=== PATIENT | male | born 1975 | race Caucasian/White ===

== ENCOUNTER 2024-02-18 15:51 | Inpatient (IN) | payer OTHER, SELFPAY ==
[2024-02-18] VITALS (7 sets, daily range): BP systolic 128–168; BP diastolic 75–107; PULSE 98–126; TEMP 36.6–36.9; O2SAT 94–96; BMI 37.7; BMI 37.8
--- NOTE | 2024-02-18 16:12 | ED.SKABFB1 ---
HPI - Skin/Abscess/Foreign Bdy General Chief complaint: Skin/Abscess/Foreign Body Stated complaint: LUMP Time Seen by Provider: 02/18/24 16:09 Source: patient Mode of arrival: ambulance Limitations: no limitations History of Present Illness HPI narrative: Patient is a 48-year-old male with a history of diabetes who presents to the emergency department for a 1 week history of abscess to the left axilla. He was seen by his doctor 4 days ago and started on doxycycline. He states he has been compliant with this medication but the area to the left axilla continues to grow. He has not had any fevers but states the pain to the left axilla does make him sick to his stomach. The area has been open and draining for several days. Related Data Home Medications ?Medication ?Instructions ?Recorded ?Confirmed atorvastatin 40 mg tablet 40 mg PO DAILY 02/18/24 bupropion HCl 150 mg 24 hr tablet, 150 mg PO DAILY 02/18/24 02/18/24 extended release doxycycline monohydrate 100 mg 100 mg PO Q12H 02/18/24 02/18/24 capsule glipizide 5 mg tablet, extended 5 mg PO DAILY 02/18/24 02/18/24 release 24 hr lisinopril 10 mg tablet 10 mg PO DAILY 02/18/24 02/18/24 metformin 500 mg tablet 500 mg PO BID 02/18/24 02/18/24 omeprazole 40 mg capsule,delayed 40 mg PO DAILY 02/18/24 02/18/24 release venlafaxine 75 mg capsule,extended 150 mg PO DAILY 02/18/24 02/18/24 release 24 hr Allergies Allergy/AdvReac Type Severity Reaction Status Date / Time Unable to Assess Allergy Verified 02/18/24 16:00 Review of Systems ROS Constitutional Denies: fever or chills Ears, nose, mouth, and throat Denies: throat pain or nasal congestion Respiratory Denies: shortness of breath Gastrointestinal Reports: nausea and vomiting; Denies: abdominal pain Integumentary/Breast Reports: redness, skin pain, skin tenderness and skin swelling; Denies: rash Hematologic/Lymphatic Denies: easy bruising or easy bleeding [facility] Medical History (Updated 02/18/24 @ 18:31 by RON Tovar) Esophageal abnormality ?K22.9 - Disease of esophagus, unspecified (ICD-10) GERD (gastroesophageal reflux disease) ?K21.9 - Gastro-esophageal reflux disease without esophagitis (ICD-10) Hypertension ?I10 - Essential (primary) hypertension (ICD-10) Depression ?F32.A - Depression, unspecified (ICD-10) Diabetes ?E11.9 - Type 2 diabetes mellitus without complications (ICD-10) Exam Narrative Exam Narrative: Gen.: Awake, alert, in no distress Head: Normocephalic, atraumatic ENT: Moist mucous membranes Respiratory: No respiratory distress Extremities: Large abscess to the left axilla that is open, draining and swollen diffusely. Firm swollen area surrounding the abscess to the left axilla. No red streaking. No palpable crepitance under the skin Psych: Normal mood and affect Neuro: No focal neuro deficit Skin: Warm, dry, intact Constitutional Vital Signs, click to edit/add: Last Vital Signs Temp 98 F 02/18/24 15:56 Pulse 108 H 02/18/24 17:37 Resp 18 02/18/24 17:37 BP 128/75 02/18/24 17:37 Pulse Ox 95 02/18/24 17:37 O2 Del Method Room Air 02/18/24 15:56 Course Vital Signs Vital signs: Vital Signs Temperature 98 F 02/18/24 15:56 Pulse Rate 126 H 02/18/24 15:56 Respiratory Rate 16 02/18/24 15:56 Blood Pressure 168/107 H 02/18/24 15:56 Pulse Oximetry 96 02/18/24 15:56 Oxygen Delivery Method Room Air 02/18/24 15:56 Temperature 98 F 02/18/24 15:56 Pulse Rate 108 H 02/18/24 17:37 Respiratory Rate 18 02/18/24 17:37 Blood Pressure 128/75 02/18/24 17:37 Pulse Oximetry 95 02/18/24 17:37 Oxygen Delivery Method Room Air 02/18/24 15:56 MDM - Skin/Abscess/Foreign Bdy MDM Narrative Medical decision making narrative: Patient treated with IV Zosyn and vancomycin for worsening abscess to the left axilla. He declined pain medication. Heart rate has improved although he remains mildly tachycardic. Sepsis labs were ordered, patient has white blood cell count 15.5. Lactic acid is normal although blood sugar is elevated at 385. CT of the chest performed to evaluate the area to the left axilla showing a 7.5 cm area of phlegmon, no defined abscess. Drainage from the left axilla was cultured. Discussed failure of outpatient treatment with the patient and his , he is reluctant but willing to stay for IV antibiotics and further treatment. Stable at time of admission. SUPERVISED APC VISIT, PHYSICIAN ATTESTATION: Based on the medical record the care appears appropriate. ? Medical Records Attestation: I reviewed the patient's medical records. Lab Data Attestation: I reviewed the patient's lab results. Labs: Lab Results 02/18/24 Range/Units 16:21 WBC 15.1 H (4.0-11.0) 10^3/uL RBC 5.76 (4.70-6.10) 10^6/uL Hgb 14.5 (14.0-18.0) g/dL Hct 45.3 (42.0-54.0) % MCV 78.6 L (80.0-94.0) fL MCH 25.2 L (25.9-34.0) pg MCHC 32.0 (29.9-35.2) g/dL RDW 12.9 (11.0-15.0) % Plt Count 346 (150-450) 10^3/uL MPV 9.2 L (9.5-13.5) fL Neut % (Auto) 77.2 H (43.0-75.0) % Lymph % (Auto) 12.7 L (20.5-60.0) % Falls % (Auto) 6.9 (1.7-12.0) % Eos % (Auto) 1.3 (0.9-7.0) % Baso % (Auto) 0.6 (0.2-2.0) % Neut # (Auto) 11.6 H (1.4-6.5) 10^3/uL Lymph # (Auto) 1.9 (1.2-3.8) 10^3/uL Falls # (Auto) 1.0 H (0.3-0.8) 10^3/uL Eos # (Auto) 0.2 (0.0-0.7) 10^3/uL Baso # (Auto) 0.1 (0.0-0.1) 10^3/uL Abs Immat Gran (auto) 0.19 H (0.00-0.03) 10^3/uL Imm/Tot Granulo (auto) 1.3 H (0.0-0.5) % ESR 111 H (<=15) mm/hr VBG pH 7.518 H (7.330-7.430) VBG pCO2 30.9 L (40.0-52.0) mmHg Sodium 128 L (136-145) mmol/L Potassium 4.0 (3.5-5.1) mmol/L Chloride 94 L (98-107) mmol/L Carbon Dioxide 27.6 (21.0-32.0) mmol/L Anion Gap 10.4 BUN 18.0 (7.0-18.0) mg/dL Creatinine 1.04 (0.70-1.30) mg/dL Est GFR ( Amer) >60 (>=60) Est GFR (Non-Af Amer) >60 (>=60) BUN/Creatinine Ratio 17.3 Glucose 385 H (74-106) mg/dL Lactate 1.7 (0.4-2.0) mmol/L Calcium 9.3 (8.5-10.1) mg/dL Total Bilirubin 0.4 (0.2-1.0) mg/dL AST 7 L (15-37) U/L ALT 16 (16-63) U/L Alkaline Phosphatase 163 H (46-116) U/L C-Reactive Protein 14.33 H (<=0.50) mg/dL Total Protein 7.3 (6.4-8.2) g/dL Albumin 2.7 L (3.4-5.0) g/dL Globulin 4.6 g/dL Albumin/Globulin Ratio 0.[address] scan - chest: Attestation: I have reviewed the pertinent imaging results. Radiologist's impression: ITS Impressions Chest CT 02/18/24 16:35 IMPRESSION: 1. Mildly hyperdense ill-defined subcutaneous 7.4 cm collection in the left axilla with surrounding inflammation which is suggestive of a phlegmon. No peripheral enhancement to suggest an abscess. Consider ultrasound correlation. 2. No left axillary lymphadenopathy. 3. No pulmonary airspace disease. Electronically authenticated by: RYAN STRONG Date: 02/18/2024 18:18 Discharge Plan Discharge Chief Complaint: Skin/Abscess/Foreign Body Patient Disposition: Admitted As Inpatient Time of Disposition Decision: 18:31 Prescriptions / Home Meds: No Action atorvastatin 40 mg tablet 40 mg PO DAILY bupropion HCl 150 mg tablet extended release 24 hr 150 mg PO DAILY doxycycline monohydrate 100 mg capsule 100 mg PO Q12H Patient Comments: 02/14/24-03/15/24 glipizide 5 mg tablet extended release 24hr 5 mg PO DAILY lisinopril 10 mg tablet 10 mg PO DAILY omeprazole 40 mg capsule,delayed release(DR/EC) 40 mg PO DAILY venlafaxine 75 mg capsule,extended release 24hr 150 mg PO DAILY metformin 500 mg tablet 500 mg PO BID Print Language: Japanese Referrals: CAMACHO SWARTZ [Primary Care Provider] - 1 week
[2024-02-18 16:30] LABS: Basophils Absolute Auto 0.1 10^3/uL (0.0-0.1); Basophils Percent Auto 0.6 % (0.2-2.0); Eosinophils Absolute Auto 0.2 10^3/uL (0.0-0.7); Eosinophils Percent Auto 1.3 % (0.9-7.0); Hematocrit 45.3 % (42.0-54.0); Hemoglobin 14.5 g/dL (14.0-18.0); Immature Granulocytes Abs Auto 0.19 10^3/uL (0.00-0.03); Immature Granulocytes Pct Auto 1.3 % (0.0-0.5); Lymphocytes Absolute Auto 1.9 10^3/uL (1.2-3.8); Lymphocytes Percent Auto 12.7 % (20.5-60.0); Mean Corpuscular Hemoglobin 25.2 pg (25.9-34.0); Mean Corpuscular Volume 78.6 fL (80.0-94.0); Mean Platelet Volume 9.2 fL (9.5-13.5); Monocytes Percent Auto 6.9 % (1.7-12.0); Neutrophils Absolute Auto 11.6 10^3/uL (1.4-6.5); Neutrophils Percent Auto 77.2 % (43.0-75.0); Platelet Count 346 10^3/uL (150-450); Red Blood Count 5.76 10^6/uL (4.70-6.10); Red Cell Distribution Width 12.9 % (11.0-15.0); White Blood Count 15.1 10^3/uL (4.0-11.0)
[2024-02-18 16:31] LABS: PCO2 VBG 30.9 mmHg (40.0-52.0); pH VBG 7.518 (7.330-7.430)
--- NOTE | 2024-02-18 16:35 | CT_ITS ---
The [address] [address] Patient Name: DANIEL LITTLE MRN: [id number] date: 1975 Sex: M Assigned Patient Location: ER Current Patient Location: ED.MAIN Accession/Order Number: [id number] Exam Date: 02/18/2024 16:30 Report Date: 02/18/2024 18:18 At the request of: YON REARDON Procedure: CT chest w con CT CHEST WITH CONTRAST HISTORY: Left axilla abscess COMPARISON: There are no prior studies available for comparison. TECHNIQUE: Multidetector CT images through the chest were obtained after administration of nonionic intravenous contrast. FINDINGS: LUNGS: The lungs are clear. There are no pleural effusions. No pneumothorax. AXILLA: There is a mildly hyperdense low density irregular collection in the left axilla measuring approximately 7.4 x 4.0 cm on axial plane. There is no peripheral enhancement. There is surrounding inflammation. AORTA: No aortic aneurysm. No aortic dissection. LYMPH NODES: No enlarged axillary or mediastinal lymph nodes by CT criteria. HEART: Normal size. No pericardial effusion. UPPER ABDOMEN: The visualized parenchymal organs of the upper abdomen are normal. MUSCULOSKELETAL: Axial skeleton shows no acute abnormality. CT/CT chest w con IMPRESSION: 1. Mildly hyperdense ill-defined subcutaneous 7.4 cm collection in the left axilla with surrounding inflammation which is suggestive of a phlegmon. No peripheral enhancement to suggest an abscess. Consider ultrasound correlation. 2. No left axillary lymphadenopathy. 3. No pulmonary airspace disease. Electronically authenticated by: RYAN STRONG Date: 02/18/2024 18:18
[2024-02-18] MEDS: 0.9 % SODIUM CHLORIDE 1,000 ML 999 ML IV (16:41)
[2024-02-18] MEDS: PIPERACILLIN SODIUM/TAZOBACTAM 4.5 GM in 0.9 % SODIUM CHLORIDE 50 ML IV (16:42)
[2024-02-18] MEDS: ONDANSETRON PF 4 MG/2 ML VIAL IV (16:43)
[2024-02-18 16:46] LABS: Erythrocyte Sedimentation Rate 111 mm/hr (<=15)
[2024-02-18 16:49] LABS: Alanine Aminotransferase 16 U/L (16-63); Albumin Globulin Ratio 0.6; Albumin Level 2.7 g/dL (3.4-5.0); Alkaline Phosphatase 163 U/L (46-116); Anion Gap 10.4; Aspartate Amino Transferase 7 U/L (15-37); BUN Creatinine Ratio 17.3; Bilirubin Total 0.4 mg/dL (0.2-1.0); C Reactive Protein 14.33 mg/dL (<=0.50); Calcium 9.3 mg/dL (8.5-10.1); Carbon Dioxide 27.6 mmol/L (21.0-32.0); Chloride 94 mmol/L (98-107); Estimated GFR (African America >60 (>=60); Estimated GFR (Non-African Ame >60 (>=60); Globulin 4.6 g/dL; Glucose 385 mg/dL (74-106); Sodium 128 mmol/L (136-145); Total Protein 7.3 g/dL (6.4-8.2)
[2024-02-18 16:52] LABS: Lactate/Lactic Acid 1.7 mmol/L (0.4-2.0)
[2024-02-18] MEDS: VANCOMYCIN HCL 2,000 MG in 0.9 % SODIUM CHLORIDE 500 ML 250 MG IV ×2 (17:02→22:03)
[2024-02-18 21:52] LABS: Glucometer 375 mg/dL (74-106)
[2024-02-18] MEDS: 0.9 % SODIUM CHLORIDE 1,000 ML 125 ML IV (21:52)
[2024-02-18] MEDS: INSULIN ASPART 300 UNIT/3 ML PEN SUBQ (21:52)
--- NOTE | 2024-02-18 22:41 | PC.NURSE ---
pt states he is allergic to a pain medication that was a pill> But he does not remember what the medication was called.
[2024-02-19] VITALS (21 sets, daily range): BP systolic 123–164; BP diastolic 79–93; PULSE 85–99; TEMP 36.4–37.2; O2SAT 94–97
--- NOTE | 2024-02-19 | CONS_ITS ---
CONSULTATION ? CONSULTATION DATE: ??02/19/2024 ? REASON FOR CONSULTATION:? Left axillary inflammation, abscess. ? HISTORY OF PRESENT ILLNESS:? The patient is a 48-year-old male with a history of type 2 diabetes, hypertension, hyperlipidemia, who reports a one week history of swelling and pain in the left axilla.? He was seen by Dr. Phan, his family doctor, four days ago and placed on doxycycline.? Several days ago, he started developing some minimal drainage, but has had increased swelling and pain.? No fevers.? He presented to the emergency room yesterday afternoon for evaluation, had elevated white blood cell count, as well as a CT scan that revealed just phlegmonous changes in the left axilla.? He does have a history of previous infections in the axilla, as well as in the leg.? His sugars have been elevated during this process.? He denies any history of cystic lesion or pimple in this area prior to it beginning, just noticed it once it was more swollen and sore.? ? ALLERGIES:? Patient reports no known drug allergies.? ? HOME MEDICATIONS:? Include atorvastatin, bupropion, doxycycline, glipizide, lisinopril, metformin, omeprazole and venlafaxine. ? PAST SURGICAL HISTORY:? Significant for ACL repair, tonsillectomy. ? SOCIAL HISTORY:? Patient is , reports rare alcohol use, no tobacco use, no illicit drug use.? ? FAMILY HISTORY:? Noncontributory. ? REVIEW OF SYSTEMS:? Ten system review of systems is negative for recent weight loss or weight gain.? Denies increased fatigue or light-headedness.? Has had no earache or tinnitus.? No sinus congestion.? No sore throat or hoarseness.? No chest pain, palpitations or syncope.? No chronic cough, shortness of breath or hemoptysis.? No abdominal pain, nausea or vomiting.? No diarrhea, constipation or decreased caliber of the stool.? No melena, hematochezia or bright red blood per rectum.? No dysuria, frequency, urgency or hematuria.? No headaches, seizures or tremors.? No easy bruising or bleeding.? No heat or cold intolerance.? No polydipsia, polyphagia or polyuria. ? PHYSICAL EXAM:? VITAL SIGNS:? Patient is afebrile.? Blood pressure is 164/90.? Pulse is 92 and regular.? Respiratory rate is 18. Temperature is 99 degrees Fahrenheit. ?O2 saturation is 96% on room air.? GENERAL:? In general, he is an obese male, in no acute distress.? HEENT:? Normocephalic, atraumatic.? Sclerae anicteric.? Conjunctiva are not injected.? Oral mucosa is moist without lesions.? NECK:? His neck is supple.? No adenopathy, thyromegaly or JVD. LUNGS:? Clear bilaterally.? CARDIAC EXAM:? Regular rhythm and rate. ABDOMEN:? Obese, soft, non-tender, non-distended.? LEFT AXILLA:? Reveals approximately an 8 cm area of induration with superficial erythema.? There are some superficial pustules in this area with purulent drainage.? No significant fluctuance.? There is firmness and tenderness.? No crepitus.? SKIN:? Otherwise warm and dry without lesions, rashes or ulcers.? NEURO EXAM:? Non-focal.? Non-lateralizing.? ? LABORATORY DATA:? White blood cell count is 13,900.? H&H is normal.? Electrolytes, BUN and creatinine unremarkable.? Glucose is elevated.? ? IMAGING:? CT scan images were personally reviewed. ? ASSESSMENT:? A 48-year-old male with a one week history of left axillary infection.? CT appears to be just phlegmonous changes, but on exam it appears to be consistent with abscess that is partially draining. ? PLAN:? Indications, risks, benefits, alternatives of proceeding with incision and draining of the abscess under local anesthesia at the bedside were explained extensively to the patient, including risks of bleeding, infection, scarring, pain, recurrence and need for further surgery.? All his questions were answered.? Informed consent was obtained. ? PROCEDURE:? The area was prepped and draped at the bedside.? It was anesthetized with 1% lidocaine.? The small draining areas were then incised, approximately 2 cm incision, with a large amount of thick purulent drainage noted.? The abscess cavity, which probably extended about 5 cm, was packed with ?? NuGauze covered with 4 x 4?s and an ABD pad and tape.? Patient tolerated procedure well, will begin b.i.d. dressing changes.? Continue antibiotics.? Await culture results which had been sent yesterday.? As long as he continues to improve, he may be able to be discharged to home tomorrow, if there are some preliminary cultures results back.? He will require at least daily packing at home on discharge.? ? CC:? Dr. Shoemaker?? MTDBucky
[2024-02-19 06:51] LABS: Basophils Absolute Auto 0.1 10^3/uL (0.0-0.1); Basophils Percent Auto 0.5 % (0.2-2.0); Eosinophils Absolute Auto 0.2 10^3/uL (0.0-0.7); Eosinophils Percent Auto 1.5 % (0.9-7.0); Hematocrit 42.6 % (42.0-54.0); Hemoglobin 13.5 g/dL (14.0-18.0); Immature Granulocytes Abs Auto 0.24 10^3/uL (0.00-0.03); Immature Granulocytes Pct Auto 1.7 % (0.0-0.5); Lymphocytes Absolute Auto 2.3 10^3/uL (1.2-3.8); Lymphocytes Percent Auto 16.5 % (20.5-60.0); Mean Corpuscular HGB Conc 31.7 g/dL (29.9-35.2); Mean Corpuscular Hemoglobin 25.3 pg (25.9-34.0); Mean Corpuscular Volume 79.9 fL (80.0-94.0); Mean Platelet Volume 9.1 fL (9.5-13.5); Monocytes Absolute Auto 1.1 10^3/uL (0.3-0.8); Monocytes Percent Auto 8.1 % (1.7-12.0); Neutrophils Absolute Auto 9.9 10^3/uL (1.4-6.5); Neutrophils Percent Auto 71.7 % (43.0-75.0); Platelet Count 315 10^3/uL (150-450); Red Blood Count 5.33 10^6/uL (4.70-6.10); White Blood Count 13.9 10^3/uL (4.0-11.0)
[2024-02-19 07:04] LABS: Alanine Aminotransferase 16 U/L (16-63); Albumin Globulin Ratio 0.6; Albumin Level 2.5 g/dL (3.4-5.0); Alkaline Phosphatase 141 U/L (46-116); Anion Gap 10.4; Aspartate Amino Transferase 6 U/L (15-37); BUN Creatinine Ratio 15.7; Bilirubin Total 0.5 mg/dL (0.2-1.0); Calcium 9.3 mg/dL (8.5-10.1); Chloride 99 mmol/L (98-107); Estimated GFR (African America >60 (>=60); Estimated GFR (Non-African Ame >60 (>=60); Globulin 4.3 g/dL; Glucose 271 mg/dL (74-106); Potassium 4.4 mmol/L (3.5-5.1); Sodium 135 mmol/L (136-145); Total Protein 6.8 g/dL (6.4-8.2)
[2024-02-19 07:22] LABS: Glucometer 241 mg/dL (74-106)
--- NOTE | 2024-02-19 07:55 | SUR.HOLD ---
pt pain is a 4. pt sates he is allergic to pain meds but does not know which one. offered acetaminophen but pt refused
[2024-02-19] MEDS: 0.9 % SODIUM CHLORIDE 1,000 ML 125 ML IV ×2 (08:21→17:03)
[2024-02-19] MEDS: INSULIN ASPART 300 UNIT/3 ML PEN SUBQ ×4 (08:31→21:17)
[2024-02-19] MEDS: OMEPRAZOLE 40 MG CAPSULE.DR PO (08:32)
[2024-02-19] MEDS: LISINOPRIL 10 MG TABLET PO (08:32)
[2024-02-19] MEDS: ACETAMINOPHEN 500 MG TABLET 1000 MG PO (08:33)
[2024-02-19] MEDS: VENLAFAXINE HCL ER 75 MG CAPSULE 150 MG PO (08:33)
[2024-02-19] MEDS: BUPROPION HCL 150 MG XL TABLET 24H PO (08:33)
--- NOTE | 2024-02-19 08:34 | P.HP_ITS ---
HPI H&P: HPI History of Present Illness Chief complaint: LUMB PHLEGMON WITH CELLULITIS LEFT AXILLA SEPSIS Narrative: Patient seen in the office a week ago for sebaceous cyst left axilla, antibiotics of doxycycline. Probiotic several days and became worse. Presented to the emergency room yesterday with increasing swelling and pain, no fever, no chills ER found area on CT scan suspicious for abscess versus phlegmon. He has failed outpatient treatment and is admitted for IV therapy And I saw patient up on the medical surgical floor, he was resting comfortably in bed. Discussed his progressive worsening left axillary pain. About the same as previous day. Also discussed his sugars, not following his good diet at home. Sugars are 300 here at the hospital Opioid HPI Opioid Management Most Recent Pain and Opioid Data: Last Pain Scale 2 02/19/24 10:25 Last Pain Assessment 02/19/24 10:25 Last MAR Pain Assessment 02/19/24 09:59 Last ORT Total Score 0 02/18/24 19:44 Last ORT Risk Category Low Risk 02/18/24 19:44 Review of Systems ROS Status of ROS 10 or more systems reviewed and unremark able except as noted in history and below [facility] Medical History (Updated 02/18/24 @ 22:55 by Yola Sellers, KHURRAM) Hypercholesteremia ?E78.00 - Pure hypercholesterolemia, unspecified (ICD-10) Esophageal abnormality ?K22.9 - Disease of esophagus, unspecified (ICD-10) GERD (gastroesophageal reflux disease) ?K21.9 - Gastro-esophageal reflux disease without esophagitis (ICD-10) Hypertension ?I10 - Essential (primary) hypertension (ICD-10) Depression ?F32.A - Depression, unspecified (ICD-10) Diabetes ?E11.9 - Type 2 diabetes mellitus without complications (ICD-10) Surgical History (Updated 02/18/24 @ 22:55 by Yola Sellers, KHURRAM) History of throat surgery ?Z98.890 - Other specified postprocedural states (ICD-10) History of repair of ACL ?Z98.890 - Other specified postprocedural states (ICD-10) Hx of tonsillectomy ?Z90.89 - Acquired absence of other organs (ICD-10) Family History (Updated 02/18/24 @ 22:53 by Yola Sellers, KHURRAM) Aunt Family history of diabetes mellitus Father Family history of CHF (congestive heart failure) Family history of hypertension Family history of myocardial infarction Mother Family history of cancer Social History (Updated 02/18/24 @ 19:43 by Yola Sellers RN) Within the past year, how often did you have a drink containing alcohol: monthly or less Within the past year, how many standard drinks containing alcohol did you have on a typical day: 1 or 2 Within the past year, how often did you have six or more drinks on one occasion: never Total score: 0 Score interpretation: A score less than 4 is consistent with normal alcohol consumption. Smoking status: Former smoker Non-prescribed substance use: denies use Previous occupational history: [employer] Highest level of school completed/degree received: Bachelor's degree Are you now , , , , never or living with a partner: In a typical week, how many times do you talk on the telephone with family, friends, or neighbors: 3 or more times per week How often do you get together with friends or relatives: 3 or more times per week How often do you attend confucianist or rastafarian services: never Little interest or pleasure in doing things: more than half the days Feeling down, depressed, or hopeless: more than half the days Feel stressed/tense/nervous/anxious/difficulty sleeping: only a little Do you think of yourself as: straight/heterosexual Gender Identity: male Meds Home Medications and Allergies Home Medications ?Medication ?Instructions ?Recorded ?Confirmed ?Type atorvastatin 40 mg tablet 40 mg PO DAILY 02/18/24 02/18/24 History bupropion HCl 150 mg 24 hr tablet, 150 mg PO DAILY 02/18/24 02/18/24 History extended release doxycycline monohydrate 100 mg 100 mg PO Q12H 02/18/24 02/18/24 History capsule glipizide 5 mg tablet, extended 5 mg PO DAILY 02/18/24 02/18/24 History release 24 hr lisinopril 10 mg tablet 10 mg PO DAILY 02/18/24 02/18/24 History metformin 500 mg tablet 500 mg PO BID 02/18/24 02/18/24 History omeprazole 40 mg capsule,delayed 40 mg PO DAILY 02/18/24 02/18/24 History release venlafaxine 75 mg capsule,extended 150 mg PO DAILY 02/18/24 02/18/24 History release 24 hr Allergies Allergy/AdvReac Type Severity Reaction Status Date / Time Unable to Assess Allergy Verified 02/18/24 16:00 Exam Constitutional Vital Signs, click to edit/add: Last Vital Signs Temp 97.8 F 02/19/24 07:38 Pulse 91 H 02/19/24 08:00 Resp 16 02/19/24 08:00 BP 137/88 02/19/24 07:38 Pulse Ox 96 02/19/24 07:38 O2 Del Method Room Air 02/19/24 07:38 Chest Common normals: inspection of chest normal and palpation of chest normal Respiratory Common normals: no retractions and no use of accessory muscles Cardio Common normals: regular rate, regular rhythm and no murmurs GI Common normals: Normal to inspection, nondistended, normoactive bowel sounds present, soft to palpation and non-tender Extremity Common normals: abnormal to inspection (Large area of erythema with drainage from the left axillary area. ) Results Labs Labs: Short CBC 02/18/24 02/19/24 Range/Units 16:21 06:44 WBC 15.1 H 13.9 H (4.0-11.0) 10^3/uL Hgb 14.5 13.5 L (14.0-18.0) g/dL Hct 45.3 42.6 (42.0-54.0) % Plt Count 346 315 (150-450) 10^3/uL BMP 02/18/24 02/19/24 16:21 06:44 Sodium 128 L 135 L Potassium 4.0 4.4 Chloride 94 L 99 Carbon Dioxide 27.6 30.0 BUN 18.0 13.0 Creatinine 1.04 0.83 Glucose 385 H 271 H Calcium 9.3 9.3 Liver Function 02/18/24 02/19/24 Range/Units 16:21 06:44 Total Bilirubin 0.4 0.5 (0.2-1.0) mg/dL AST 7 L 6 L (15-37) U/L ALT 16 16 (16-63) U/L Alkaline Phosphatase 163 H 141 H (46-116) U/L Albumin 2.7 L 2.5 L (3.4-5.0) g/dL ABG ABG results: 02/18/24 16:21 VBG pH 7.518 H VBG pCO2 30.9 L Assessment and Plan Assessment and Plan (1) Sepsis: (2) Phlegmonous cellulitis: Plan Admission findings: Sinus tachycardia, uncontrolled hypertension, severe hyperglycemia, leukocytosis with left shift consistent with bacterial infection, elevated ESR, elevated CRP secondary to left axillary abscess with phlegmon features resulting in sepsis due to poorly controlled diabetes mellitus. Given fluids in ER. Continue with antibiotics as started in ER Zosyn and vancomycin. Consult to general surgery. Poorly controlled diabetes mellitus-insulin sliding scale. He does not use insulin at home. Not taking his medications consistently and not following any particular diet. 1800-calorie diet here. Need to get sugars under 200 to improve ability to fight off infection Uncontrolled hypertension-better so far this morning. Continue with home medications. GERD-continue with home medications Depression and anxiety-continue with home medications Sleep apnea documented at office-recommend bringing in home machine Admission status: With failed outpatient treatment leukocytosis, elevated inflammatory markers resulting in sepsis-medically necessary treatment will span 2 midnights. Patient needed a longer course of IV antibiotics with blood cultures pending. Pending consult from general surgery possible surgical intervention tomorrow depending on hospital course and evaluation by general surgery recommendations adding to length of stay
[2024-02-19] MEDS: GLIPIZIDE 5 MG TAB.ER.24 PO (09:59)
[2024-02-19] MEDS: VANCOMYCIN HCL 2,000 MG in 0.9 % SODIUM CHLORIDE 500 ML 250 MG IV ×2 (09:59→21:17)
--- NOTE | 2024-02-19 10:09 | PC.NURSE ---
pt was offered pain med but did not want anything for pain
[2024-02-19 11:06] LABS: Glucometer 278 mg/dL (74-106)
[2024-02-19] MEDS: PIPERACILLIN SODIUM/TAZOBACTAM 3.375 GM in 0.9 % SODIUM CHLORIDE 50 ML IV ×2 (12:30→21:16)
[2024-02-19 16:56] LABS: Glucometer 204 mg/dL (74-106)
--- NOTE | 2024-02-19 17:22 | PM.GSCN ---
History of Present Illness Consult details Consult date: 02/19/24 Requesting physician: José Miguel Phan Narrative: patient seen/examined/chart and ct images reviewed/consult dictated; 48 yo male with DMII and obesity with 1 week h/o left axillary swelling, pain, erythema; on Doxycycline for 4 days with no improvement, some spontaneous minimal drainage several days ago; still with elevated wbc; ct read as phlegmon and looks consistent with that, but on exam concerning for abscess; drained at bedside under local anesthesia; will pack area bid; continue empiric antibiotics/supportive care. [facility] Medical History (Updated 02/18/24 @ 22:55 by Yola Sellers, RN) Hypercholesteremia ?E78.00 - Pure hypercholesterolemia, unspecified (ICD-10) Esophageal abnormality ?K22.9 - Disease of esophagus, unspecified (ICD-10) GERD (gastroesophageal reflux disease) ?K21.9 - Gastro-esophageal reflux disease without esophagitis (ICD-10) Hypertension ?I10 - Essential (primary) hypertension (ICD-10) Depression ?F32.A - Depression, unspecified (ICD-10) Diabetes ?E11.9 - Type 2 diabetes mellitus without complications (ICD-10) Surgical History (Updated 02/18/24 @ 22:55 by Yola Sellers, KHURRAM) History of throat surgery ?Z98.890 - Other specified postprocedural states (ICD-10) History of repair of ACL ?Z98.890 - Other specified postprocedural states (ICD-10) Hx of tonsillectomy ?Z90.89 - Acquired absence of other organs (ICD-10) Family History (Updated 02/18/24 @ 22:53 by Yola Sellers, KHURRAM) Aunt Family history of diabetes mellitus Father Family history of CHF (congestive heart failure) Family history of hypertension Family history of myocardial infarction Mother Family history of cancer Social History (Updated 02/18/24 @ 19:43 by Yola Sellers, RN) Within the past year, how often did you have a drink containing alcohol: monthly or less Within the past year, how many standard drinks containing alcohol did you have on a typical day: 1 or 2 Within the past year, how often did you have six or more drinks on one occasion: never Total score: 0 Score interpretation: A score less than 4 is consistent with normal alcohol consumption. Smoking status: Former smoker Non-prescribed substance use: denies use Previous occupational history: [employer] Highest level of school completed/degree received: Bachelor's degree Are you now , , , , never or living with a partner: In a typical week, how many times do you talk on the telephone with family, friends, or neighbors: 3 or more times per week How often do you get together with friends or relatives: 3 or more times per week How often do you attend worship or confucianism services: never Little interest or pleasure in doing things: more than half the days Feeling down, depressed, or hopeless: more than half the days Feel stressed/tense/nervous/anxious/difficulty sleeping: only a little Do you think of yourself as: straight/heterosexual Gender Identity: male Meds Home Medications and Allergies Home Medications ?Medication ?Instructions ?Recorded ?Confirmed ?Type atorvastatin 40 mg tablet 40 mg PO DAILY 02/18/24 02/18/24 History bupropion HCl 150 mg 24 hr tablet, 150 mg PO DAILY 02/18/24 02/18/24 History extended release doxycycline monohydrate 100 mg 100 mg PO Q12H 02/18/24 02/18/24 History capsule glipizide 5 mg tablet, extended 5 mg PO DAILY 02/18/24 02/18/24 History release 24 hr lisinopril 10 mg tablet 10 mg PO DAILY 02/18/24 02/18/24 History metformin 500 mg tablet 500 mg PO BID 02/18/24 02/18/24 History omeprazole 40 mg capsule,delayed 40 mg PO DAILY 02/18/24 02/18/24 History release venlafaxine 75 mg capsule,extended 150 mg PO DAILY 02/18/24 02/18/24 History release 24 hr Allergies Allergy/AdvReac Type Severity Reaction Status Date / Time Unable to Assess Allergy Verified 02/18/24 16:00 Exam Constitutional Vital Signs, click to edit/add: Last Vital Signs Temp 99 F 02/19/24 16:00 Pulse 92 H 02/19/24 16:01 Resp 20 02/19/24 16:00 BP 164/90 H 02/19/24 16:00 Pulse Ox 96 02/19/24 16:00 O2 Del Method Room Air 02/19/24 16:00 Results Labs Labs: Abnormal lab results 02/18/24 02/19/24 02/19/24 Range/Units 21:51 06:44 07:18 WBC 13.9 H (4.0-11.0) 10^3/uL Hgb 13.5 L (14.0-18.0) g/dL MCV 79.9 L (80.0-94.0) fL MCH 25.3 L (25.9-34.0) pg MPV 9.1 L (9.5-13.5) fL Lymph % (Auto) 16.5 L (20.5-60.0) % Neut # (Auto) 9.9 H (1.4-6.5) 10^3/uL Douglas # (Auto) 1.1 H (0.3-0.8) 10^3/uL Abs Immat Gran (auto) 0.24 H (0.00-0.03) 10^3/uL Imm/Tot Granulo (auto) 1.7 H (0.0-0.5) % Sodium 135 L (136-145) mmol/L Glucose 271 H (74-106) mg/dL AST 6 L (15-37) U/L Alkaline Phosphatase 141 H (46-116) U/L Albumin 2.5 L (3.4-5.0) g/dL POC Glucose 375 H 241 H (74-106) mg/dL 02/19/24 02/19/24 Range/Units 10:58 16:54 WBC (4.0-11.0) 10^3/uL Hgb (14.0-18.0) g/dL MCV (80.0-94.0) fL MCH (25.9-34.0) pg MPV (9.5-13.5) fL Lymph % (Auto) (20.5-60.0) % Neut # (Auto) (1.4-6.5) 10^3/uL Douglas # (Auto) (0.3-0.8) 10^3/uL Abs Immat Gran (auto) (0.00-0.03) 10^3/uL Imm/Tot Granulo (auto) (0.0-0.5) % Sodium (136-145) mmol/L Glucose (74-106) mg/dL AST (15-37) U/L Alkaline Phosphatase (46-116) U/L Albumin (3.4-5.0) g/dL POC Glucose 278 H 204 H (74-106) mg/dL Diabetes panel 02/19/24 Range/Units 06:44 Sodium 135 L (136-145) mmol/L Potassium 4.4 (3.5-5.1) mmol/L Chloride 99 (98-107) mmol/L Carbon Dioxide 30.0 (21.0-32.0) mmol/L BUN 13.0 (7.0-18.0) mg/dL Creatinine 0.83 (0.70-1.30) mg/dL Glucose 271 H (74-106) mg/dL Calcium 9.3 (8.5-10.1) mg/dL AST 6 L (15-37) U/L ALT 16 (16-63) U/L Alkaline Phosphatase 141 H (46-116) U/L Total Protein 6.8 (6.4-8.2) g/dL Albumin 2.5 L (3.4-5.0) g/dL Calcium panel 02/19/24 Range/Units 06:44 Calcium 9.3 (8.5-10.1) mg/dL Albumin 2.5 L (3.4-5.0) g/dL Pituitary panel 02/19/24 Range/Units 06:44 Sodium 135 L (136-145) mmol/L Potassium 4.4 (3.5-5.1) mmol/L Chloride 99 (98-107) mmol/L Carbon Dioxide 30.0 (21.0-32.0) mmol/L BUN 13.0 (7.0-18.0) mg/dL Creatinine 0.83 (0.70-1.30) mg/dL Glucose 271 H (74-106) mg/dL Calcium 9.3 (8.5-10.1) mg/dL Adrenal panel 02/19/24 Range/Units 06:44 Sodium 135 L (136-145) mmol/L Potassium 4.4 (3.5-5.1) mmol/L Chloride 99 (98-107) mmol/L Carbon Dioxide 30.0 (21.0-32.0) mmol/L BUN 13.0 (7.0-18.0) mg/dL Creatinine 0.83 (0.70-1.30) mg/dL Glucose 271 H (74-106) mg/dL Calcium 9.3 (8.5-10.1) mg/dL Total Bilirubin 0.5 (0.2-1.0) mg/dL AST 6 L (15-37) U/L ALT 16 (16-63) U/L Alkaline Phosphatase 141 H (46-116) U/L Total Protein 6.8 (6.4-8.2) g/dL Albumin 2.5 L (3.4-5.0) g/dL All other labs normal. Assessment and Plan Assessment and Plan (1) Sepsis: (2) Phlegmonous cellulitis:
[2024-02-19] MEDS: KETOROLAC TROMETHAMINE 30 MG/ML VIAL IVP (17:25)
[2024-02-19] MEDS: LIDOCAINE HCL 1% 200 MG/20 ML MDV INJ (17:26)
[2024-02-19 20:32] LABS: Glucometer 240 mg/dL (74-106)
[2024-02-19] MEDS: TEMAZEPAM 15 MG CAPSULE PO (21:16)
[2024-02-19] MEDS: ATORVASTATIN CALCIUM 40 MG TABLET PO (21:16)
[2024-02-20] VITALS (10 sets, daily range): BP systolic 135–155; BP diastolic 82–88; PULSE 72–89; TEMP 36.6–36.8; O2SAT 95
[2024-02-20] MEDS: KETOROLAC TROMETHAMINE 30 MG/ML VIAL IVP ×2 (03:23→09:50)
[2024-02-20] MEDS: PIPERACILLIN SODIUM/TAZOBACTAM 3.375 GM in 0.9 % SODIUM CHLORIDE 50 ML IV ×2 (03:23→13:28)
[2024-02-20] MEDS: 0.9 % SODIUM CHLORIDE 1,000 ML 125 ML IV (03:23)
[2024-02-20 06:15] LABS: Basophils Absolute Auto 0.1 10^3/uL (0.0-0.1); Basophils Percent Auto 0.8 % (0.2-2.0); Eosinophils Absolute Auto 0.4 10^3/uL (0.0-0.7); Eosinophils Percent Auto 3.6 % (0.9-7.0); Hematocrit 38.9 % (42.0-54.0); Hemoglobin 12.3 g/dL (14.0-18.0); Immature Granulocytes Pct Auto 3.6 % (0.0-0.5); Lymphocytes Absolute Auto 2.3 10^3/uL (1.2-3.8); Lymphocytes Percent Auto 20.6 % (20.5-60.0); Mean Corpuscular HGB Conc 31.6 g/dL (29.9-35.2); Mean Corpuscular Volume 79.1 fL (80.0-94.0); Mean Platelet Volume 8.9 fL (9.5-13.5); Monocytes Percent Auto 9.2 % (1.7-12.0); Neutrophils Percent Auto 62.2 % (43.0-75.0); Platelet Count 316 10^3/uL (150-450); Red Blood Count 4.92 10^6/uL (4.70-6.10); White Blood Count 11.2 10^3/uL (4.0-11.0)
[2024-02-20 06:29] LABS: Erythrocyte Sedimentation Rate <130 mm/hr (<=15)
[2024-02-20 06:31] LABS: Anion Gap 10.3; BUN Creatinine Ratio 15.1; C Reactive Protein 8.28 mg/dL (<=0.50); Calcium 8.8 mg/dL (8.5-10.1); Carbon Dioxide 28.4 mmol/L (21.0-32.0); Chloride 103 mmol/L (98-107); Estimated GFR (African America >60 (>=60); Estimated GFR (Non-African Ame >60 (>=60); Glucose 225 mg/dL (74-106); Potassium 3.7 mmol/L (3.5-5.1); Sodium 138 mmol/L (136-145)
[2024-02-20 08:00] LABS: Glucometer 241 mg/dL (74-106)
[2024-02-20] MEDS: HYDROCODONE/ACET 5-325 MG TABLET 1 TAB PO (08:15)
[2024-02-20] MEDS: BUPROPION HCL 150 MG XL TABLET 24H PO (08:15)
[2024-02-20] MEDS: LISINOPRIL 10 MG TABLET PO (08:15)
[2024-02-20] MEDS: VENLAFAXINE HCL ER 75 MG CAPSULE 150 MG PO (08:15)
[2024-02-20] MEDS: OMEPRAZOLE 40 MG CAPSULE.DR PO (08:15)
--- NOTE | 2024-02-20 08:16 | PM.GSPN ---
Progress Note: A&P Assessment and Plan (1) Sepsis: Assessment and Plan: doing well, continue bid backing while in hospital, upon discharge can pack daily, patient should remove dressing and packing and shower daily, wash area with soap and water, then repack; continue antibiotics, await culture results; can follow up with me in 7-10 days after discharge. (2) Phlegmonous cellulitis: Subjective Subjective Interval history: pain improved; serosanguinous drainage on dressing; afebrile Exam Narrative Exam Narrative: skin: decreased induration and erythema; serosanguinous drainage from wound. Constitutional Vital Signs, click to edit/add: Last Vital Signs Temp 97.8 F 02/20/24 07:51 Pulse 89 02/20/24 08:00 Resp 16 02/20/24 07:51 BP 155/85 H 02/20/24 07:51 Pulse Ox 95 02/20/24 07:51 O2 Del Method Room Air 02/20/24 07:51 O2 Flow Rate 95 02/19/24 20:00 Date and Time Date and Time of Service Date of service: 02/20/24 Time: 08:16
[2024-02-20] MEDS: INSULIN ASPART 300 UNIT/3 ML PEN SUBQ ×2 (08:20→12:53)
[2024-02-20] MEDS: GLIPIZIDE 5 MG TAB.ER.24 PO (08:20)
--- NOTE | 2024-02-20 08:22 | P.DS_ITS ---
DS: Providers Provider Date of admission: 02/18/24 19:21 Primary care physician: CAMACHO SWARTZ Consults: 02/18/24 20:43 Consult to Pharmacy Routine Consulting Provider: Mami Owens Reason for consultation: Zosyn dosing/monitoring Has provider been notified: No 02/19/24 07:27 Consult to General Surgeon Routine Consulting Provider: Emerson Bess Reason for consultation: Phlegmon Has provider been notified: No 02/20/24 08:18 Consult to Check Inspector Routine Reason for consultation: 1800 tad diet Has provider been notified: No DS: Diagnosis Discharge Diagnosis (1) Sepsis: (2) Phlegmonous cellulitis: Plan Admission findings: Sinus tachycardia, uncontrolled hypertension, severe hyperglycemia, leukocytosis with left shift consistent with bacterial infection, elevated ESR, elevated CRP secondary to left axillary abscess with phlegmon features resulting in sepsis due to poorly controlled diabetes mellitus. Improving at the time of discharge Poorly controlled diabetes mellitus-insulin sliding scale. Improving at the time of discharge Uncontrolled hypertension-improving at the time of discharge GERD-stable on home medications Depression and anxiety-stable on home medications Sleep apnea documented at office-stable with home machine Admission status: With failed outpatient treatment leukocytosis, elevated inflammatory markers resulting in sepsis-medically necessary treatment will span 2 midnights. Patient needed a longer course of IV antibiotics with blood cultures pending. Pending consult from general surgery possible surgical intervention tomorrow depending on hospital course and evaluation by general surgery recommendations adding to length of stay ? DS: Summary Hospital Course Hospital Course: Patient admitted with failed outpatient treatment of left axillary abscess. Patient was started on IV antibiotics and IV fluids for the sepsis. His labile blood pressure improved. His heart rate improved. This was after I&D completed day prior to discharge. Pain well-controlled. With patient education if these of the family can be trained or will need to be done as an YARELY patient for dressing and packing changes. That can be completed today, he will be discharged to home later today. Medications to this. Follow-up with PCP early next week. Culture should be returned by then. Status at Discharge Overall status at discharge: patient is not back to baseline Time Spent with Patient Time attestation: Total time spent providing and/or coordinating discharge services: Time spent: greater than 30 minutes Quality: Stroke Symptom Onset Unknown: No Exam Constitutional Vital Signs, click to edit/add: Last Vital Signs Temp 97.8 F 02/20/24 07:51 Pulse 89 02/20/24 08:00 Resp 16 02/20/24 07:51 BP 155/85 H 02/20/24 07:51 Pulse Ox 95 02/20/24 07:51 O2 Del Method Room Air 02/20/24 07:51 O2 Flow Rate 95 02/19/24 20:00 Chest Common normals: inspection of chest normal and palpation of chest normal Respiratory Common normals: no retractions and no use of accessory muscles Cardio Common normals: regular rate, regular rhythm and no murmurs GI Common normals: Normal to inspection, nondistended, normoactive bowel sounds present, soft to palpation and non-tender Extremity Common normals: abnormal to inspection (Large area of erythema with drainage from the left axillary area. ) DS: Data Data Completed and Pending Labs on day of discharge: Labs from last 24 hours 02/20/24 02/20/24 02/19/24 07:59 05:45 20:27 WBC 11.2 H RBC 4.92 Hgb 12.3 L Hct 38.9 L MCV 79.1 L MCH 25.0 L MCHC 31.6 RDW 13.0 Plt Count 316 MPV 8.9 L Neut % (Auto) 62.2 Lymph % (Auto) 20.6 Gulf % (Auto) 9.2 Eos % (Auto) 3.6 Baso % (Auto) 0.8 Neut # (Auto) 7.0 H Lymph # (Auto) 2.3 Gulf # (Auto) 1.0 H Eos # (Auto) 0.4 Baso # (Auto) 0.1 Abs Immat Gran (auto) 0.40 H Imm/Tot Granulo (auto) 3.6 H ESR <130 H Sodium 138 Potassium 3.7 Chloride 103 Carbon Dioxide 28.4 Anion Gap 10.3 BUN 13.0 Creatinine 0.86 Est GFR ( Amer) >60 Est GFR (Non-Af Amer) >60 BUN/Creatinine Ratio 15.1 Glucose 225 H Calcium 8.8 C-Reactive Protein 8.28 H POC Glucose 241 H 240 H 02/19/24 02/19/24 16:54 10:58 WBC RBC Hgb Hct MCV MCH MCHC RDW Plt Count MPV Neut % (Auto) Lymph % (Auto) Gulf % (Auto) Eos % (Auto) Baso % (Auto) Neut # (Auto) Lymph # (Auto) Gulf # (Auto) Eos # (Auto) Baso # (Auto) Abs Immat Gran (auto) Imm/Tot Granulo (auto) ESR Sodium Potassium Chloride Carbon Dioxide Anion Gap BUN Creatinine Est GFR ( Amer) Est GFR (Non-Af Amer) BUN/Creatinine Ratio Glucose Calcium C-Reactive Protein POC Glucose 204 H 278 H Discharge Plan Discharge Disposition: Home, Self-Care Condition: Good Discharge Medications: New cefdinir 300 mg capsule 600 mg PO DAILY Qty: 20 0RF levofloxacin 750 mg tablet 750 mg PO DAILY 10 Days Qty: 10 0RF Continued atorvastatin 40 mg tablet 40 mg PO DAILY bupropion HCl 150 mg tablet extended release 24 hr 150 mg PO DAILY glipizide 5 mg tablet extended release 24hr 5 mg PO DAILY lisinopril 10 mg tablet 10 mg PO DAILY omeprazole 40 mg capsule,delayed release(DR/EC) 40 mg PO DAILY venlafaxine 75 mg capsule,extended release 24hr 150 mg PO DAILY metformin 500 mg tablet 500 mg PO BID Discontinued doxycycline monohydrate 100 mg capsule 100 mg PO Q12H Patient Comments: 02/14/24-03/15/24 Print Language: Tamazight Forms: Portal Instructions
[2024-02-20 10:06] LABS: Vancomycin Trough 9.9 ug/mL (5.0-20.0)
--- NOTE | 2024-02-20 10:16 | SWNOTE1 ---
SW met with pt to discuss YARELY versus family completing dressing changes. Pt voiced his is not comfortable completing the packing and he will come to hospital as an YARELY pt. Nursing came in room and reviewed note from Dr. Bess and once pt is discharged home, dressing change and packing is 1x daily. Pt is alright with coming in 1x daily. He will follow up with Dr. Bess in 7-10 days. NEMO let pt know that SW will have case management assist with YARELY form and the form will be submitted to centralized scheduling and they will call to schedule times with pt to come in. Pt voiced understanding to all the above.
[2024-02-20] MEDS: VANCOMYCIN HCL 2,000 MG in 0.9 % SODIUM CHLORIDE 500 ML 250 MG IV (11:14)
--- NOTE | 2024-02-20 11:26 | CM.NOTE ---
YARELY form completed, faxed to Centralized scheduling and [facility]ARELY clinic. Open supplies will be sent with pt at discharge. Pt given contact information for [employer] early childhood educator aide and message left with [employer] facilities repairer to reach out to pt for continued education. Pt verbalizes understanding.
[2024-02-20 11:30] LABS: Glucometer 292 mg/dL (74-106)
--- NOTE | 2024-02-21 10:32 | CM.DCFOLLOWU ---
1st attempt 02/21/24
[2024-02-21 11:35] VITALS: BMI 37.8
--- NOTE | 2024-02-24 11:42 | CM.DCFOLLOWU ---
2nd attempt 02/24/24
--- NOTE | 2024-02-25 10:57 | CM.DCFOLLOWU ---
Person spoke with: patient How are you feeling? well How is your pain? none Did you understand your discharge instructions? yes Do you have any questions about your discharge instructions? no Were you given any prescriptions at discharge? yes Were you able to get your prescriptions filled? yes Do you understand how to take your medications as ordered? yes Do you have any questions about your follow up appointment and do you plan to keep your follow up appointment? no questions, follow up tomorrow with Dr. Bess Is there anything else that you would like to discuss? no Questions/Comments/Concerns/Other: none
== END 2024-02-20 16:12 | disposition home or self-care (01) | DRG 872 ==
LOC: ER 18:32 → MS 19:29
PROVIDERS: Physician Assistant; Registered Nurse; Admitting Provider Family Medicine; Emergency Provider Student in an Organized Health Care Education/Training Program; PCP Nurse Practitioner Family; Visit Provider Family Medicine
DX: A41.9 Sepsis, unspecified organism (principal); L02.412 Cutaneous abscess of left axilla; E78.00 Pure hypercholesterolemia, unspecified; K21.9 Gastro-esophageal reflux disease without esophagitis; I10 Essential (primary) hypertension; F32.A Depression, unspecified; E11.65 Type 2 diabetes mellitus with hyperglycemia; R70.0 Elevated erythrocyte sedimentation rate; R79.82 Elevated C-reactive protein (CRP); F41.9 Anxiety disorder, unspecified; G47.30 Sleep apnea, unspecified; Z98.890 Other specified postprocedural states; Z90.89 Acquired absence of other organs; Z79.84 Long term (current) use of oral hypoglycemic drugs; Z87.891 Personal history of nicotine dependence; Z79.899 Other long term (current) drug therapy; B95.62 Methicillin resistant Staphylococcus aureus infection as the cause of diseases classified elsewhere
CPT/HCPCS: 36415; 71260; 80048; 80053; 80202; 82800; 82948; 83605; 85025; 85652; 86140; 87040; 87070; 87075; 87081; 87150; 87186; 94761; 96365; 96366; 96367; 96368; 96375; 96376; 99285; J1170; J1885; J2405; J2543; J3370; Q9967

== ENCOUNTER 2024-03-13 07:33 | Outpatient (RCR) | payer OTHER, SELFPAY ==
[2024-02-21 08:00] VITALS: BP 151/96; PULSE 83; TEMP 36.6; O2SAT 98
--- NOTE | 2024-02-21 08:33 | PC.NURSE ---
0800: Pt. to [facility] for daily dressing change. Seated in recliner. Dressing to left axilla removed. Moderate amount purulent drainage noted to dressing. Firm palpable area noted under axilla. Patient denies with palpation. Packing removed from wound, approx. 10 in length. Wound measured and assessed, see documentation. Wound bed flushed with saline irrigant. Using sterile technique, wound packed with approx. 12 1/2 plain packing, covered with 4x4's and ABD dressing. Secured with mesh tape. Pt. tolerated without c/o pain. 0820: Pt. without c/o or needs. D/c'd amb. to home.
[2024-02-22 08:10] VITALS: BP 170/100; PULSE 85; TEMP 36.4; O2SAT 99
--- NOTE | 2024-02-22 10:35 | PC.NURSE ---
pt arrived on unit, vitals taken, BP manual 170/110, patient states he just took his blood pressure medication before arriving, has white coat syndrom, denies any symptoms. Patient educated on monitoring blood pressure at home, symptoms and blood pressure to report to physician.
[2024-02-22 10:38] VITALS: BP 170/110; PULSE 76; TEMP 36.7; O2SAT 98
--- NOTE | 2024-02-23 08:34 | PC.NURSE ---
pt arrived on unit, vitals taken, BP manual 170/100, patient states he just took his blood pressure medication before arriving, has white coat syndrom, denies any symptoms. Patient educated on monitoring blood pressure at home, symptoms and blood pressure to report to physician.
[2024-02-24 08:17] VITALS: BP 171/101; PULSE 93; TEMP 36.6; O2SAT 99
--- NOTE | 2024-02-24 08:18 | PC.NURSE ---
0800 Arrival ambulatory to chair. alert oriented. Left axillary dressing removed, moderate amount of mucopurulent drainage. noted. old packing removed. irrigated wound with normal saline, tunneling approx 4 cm 10 oclock position, wound opening approx 1.5 x .5 cm. repacked with 1/2 inch nugauze, surrounding skin cleansed wit soap and water, dried, skin prep applied, some irritation noted on skin surrounding wound. 4x4 covered with abd, secured with tape. released ambulatory at 815. tolerated dressing change well.
[2024-02-25 08:05] VITALS: BP 171/101; PULSE 90; TEMP 36.6; O2SAT 98
--- NOTE | 2024-02-25 08:37 | PC.NURSE ---
0805: Pt. to [facility] amb. for daily drsg. change. Seated in recliner. VSS, however BP elevated since surgery per. patient. Old dressing removed from left axilla. Packing removed. Both with mod. amount purulent drainage. No odor observed. Wound flushed with saline, re-packed with 1/2 packing, covered with 4x4 and ABD dressing using sterile technique. Pt. tolerated with minimal c/o discomfort. 0820: Pt. d/c'd amb. to home per. self.
[2024-02-26 08:35] VITALS: BP 151/91; PULSE 80; TEMP 36.6; O2SAT 95
--- NOTE | 2024-02-26 08:36 | PC.NURSE ---
0810 Arrival ambulatory, alert oriented. VS obtained. dressing from left axillary area removed, noted mod amount of bloody/purulent drainage on abd, packing removed, noted purulent exudate on packing, wound appears clean irrigated with ns, wound tunnels approx 4 cm at 10 oclock position, surrounding skin cleansed with soap and water, dried, skin prep to intact skin, repacked with 1/2 nugauze approx 8 inches. covered with 4x4 and abd, secured with tape. some skin irritation noted distal/below wound, left open to air. Also noted firmness around wound opening. patient states it really hasn't been bothering him too bad. 0830 released ambulatory
[2024-02-27 08:12] VITALS: BP 188/86; PULSE 69; TEMP 36.6; O2SAT 99
--- NOTE | 2024-02-27 08:32 | PC.NURSE ---
0812: Pt. to [facility] amb. for daily dressing change to left axilla area. Old dressing and packing removed. Both with small to mod. amount purulent/serosang. drainage. Depth 2.5cm length 3cm. Irrigated well with saline. Using sterile technique, wound packed with 1/2 plain packing, covered with 4x4 and ABD. dressing. Pt. tolerated with minimal c/o discomfort. 0829: D/c'd amb. to home.
[2024-02-28 08:10] VITALS: BP 147/98; PULSE 88; TEMP 36.6; O2SAT 98
--- NOTE | 2024-02-28 08:44 | PC.NURSE ---
0810: Pt. in for daily dressing change. Seated in recliner. VSS. Old dressing and packing removed from left axillary wound. Small amount serousang/purulent drainage observed to ABD and moderate amount to packing. Using sterile technique, wound irrigated with saline and packed with approximately 10 of 1/2 inch plain packing. Covered with 4x4 and ABD dressing. Secured with mesh tape. Pt. tolerated with minimal c/o discomfort. 0825: D/c'd amb to home.
[2024-03-02 12:00] VITALS: BP 134/90; PULSE 93; TEMP 36.2; O2SAT 97
--- NOTE | 2024-03-02 12:22 | PC.NURSE ---
1200: Pt. in for daily dressing change. Old dressing to left axillary region removed. Small amount serosang. drainage. Packing removed. Mod. amount serosang. drainage observed. Wound flushed with saline and repacked with 1/2 gauze strip. Covered with 4x4 and ABD dressing. Secured with mesh tape. pt. tolerated with minimal c/o pain. 1215: VSS. Pt. d/c'd amb. to home.
[2024-03-03 07:55] VITALS: BP 139/99; PULSE 104; TEMP 36.3; O2SAT 98
--- NOTE | 2024-03-03 07:57 | PC.NURSE ---
0745 Patient had removed packing and showered prior to arrival. left axillary wound approx 1 cm opening, skin surrounding sl irritated, wound has approx 3 cm tunneling at 10 o'clock position. wound bed looks clean beefy red. irrigated with normal saline, packed with 1/2 nugauze, covered with 4x4 and 1//2 ABD. secured with tape. skin surrounding wound - skin prep applied. tolerated well. released ambulatory
[2024-03-04 08:27] VITALS: BP 149/101; PULSE 104; TEMP 36.6; O2SAT 96
--- NOTE | 2024-03-04 08:30 | PC.NURSE ---
0815 Patient arrived. Left axillary wound approx 1 cm opening, skin surrounding sl irritated in a square shape, wound has approx 3 cm tunneling at 10 o'clock position. wound bed looks clean beefy red. irrigated with normal saline, packed with 1/2 gauze, covered with 4x4 and 1//2 ABD. secured with tape. skin surrounding wound - skin prep applied. patient tolerated well, patient ambulatory and left at 0827
[2024-03-05 07:55] VITALS: BP 142/91; PULSE 99; TEMP 36.1; O2SAT 97
--- NOTE | 2024-03-05 08:33 | PC.NURSE ---
0755: Pt. arrived for daily dressing change; pleasant and conversive. Denies discomfort; dressing to left axilla removed per patient. No packing in place. Pt. states he had removed it for his morning shower. Wound is approx. i.5 cm in length and less than 0.5 cm deep. No drainage or odor noted; wound is beefy red. Half inch packing placed as per order, covered with folded 4x4, folded ABD applied and secured with wide tape. Pt. tolerated well; denies additional needs. 0805: Discharged ambulatory to private vehicle with no distress noted.
--- NOTE | 2024-03-06 15:12 | PC.NURSE ---
1230: Pt. arrived for daily dressing change to left axillary area. Old dressing with dime-sized area of dried, bloody drainage; removed and discarded. Packing to wound removed--no odor or drainage noted. Firmness noted circumferentially; no tenderness or warmth to area. Flushed with normal saline and packed with iodoform as ordered. Covered with folded 4x4 and folded ABD as ordered. Secured with tape. Tolerated well. 1245: Discharged to private vehicle with no distress noted.
[2024-03-07 10:00] VITALS: BP 149/93; PULSE 93; TEMP 37.1; O2SAT 97
[2024-03-08 09:10] VITALS: BP 138/99; PULSE 100; TEMP 36.4; O2SAT 100
[2024-03-09 07:50] VITALS: BP 140/100; PULSE 96; TEMP 36.3; O2SAT 100
--- NOTE | 2024-03-09 08:03 | PC.NURSE ---
0745 Patient arrived. Removed patient's old dressing and packing from left axillary wound. Washed axillary with soap and water. Patient's wound is measuring approx 1 cm opening and 1.5 cm tunneling to the left side. Skin surrounding the wound is slightly irritated from the tape. Wound bed is clean and beefy red. Irrigated wound with normal saline, packed with 1/2 nugauze, covered with 4x4 and 1/2 ABD. Skin prep was applied then secured with tape. Patient tc folerated well released ambulatory
[2024-03-10 08:05] VITALS: BP 138/92; PULSE 105; TEMP 36.2; O2SAT 98
--- NOTE | 2024-03-10 08:17 | PC.NURSE ---
Pt. to [facility] amb. for daily dressing change. Pt. removed dressing and packing at home. Left axillary wound flushed with saline. Surrounding area washed with soap and water. Wound packed with approx. 4 of 1/2 packing. Covered with several folded 4x4 dressings. Secured with paper tape. Pt. tolerated without c/o. VSS. D/c'd amb to home.
[2024-03-11 07:58] VITALS: BP 145/98; PULSE 99; TEMP 35.7; O2SAT 100
--- NOTE | 2024-03-11 07:59 | PC.NURSE ---
0745 left axillary dressing removed, scant amount of sero sang drainage on old dressing, packing removed, irrigated with ns, cleansed irritated skin around wound with soap and water, dried, skin prep applied, wound approx 1.5 cm deep, clean. repacked with nugauze approx 4 inches. covered with 4x4 and 4x4, secured with tape. released ambulatory.
[2024-03-12 08:00] VITALS: BP 127/78; TEMP 36.5; O2SAT 98
--- NOTE | 2024-03-12 08:55 | PC.NURSE ---
0800: Pt. to [facility] for daily dressing change. Seated in recliner. VSS. Pt. removed dressing and packing at home before showering. Left axillary wound irrigated with saline. Packed with approximately 2.5 1/2 packing. Covered with folded 4x4 dressing. Secured with paper tape. Tolerated without c/o discomfor. 0812: D/c'd amb. to home.
[2024-03-13 08:10] VITALS: BP 123/86; PULSE 63; TEMP 36.6; O2SAT 100
--- NOTE | 2024-03-13 08:31 | PC.NURSE ---
0810: Pt. to [facility] amb. for daily dressing change to left axillary wound. Seated in recliner. VSS. Denies pain to site. Dressing removed at home by pt before showering. Relayed elise sized serosang. drainage to dressing. No active drainage observed. Wound care performed, see documentation. Pt. tolerated without c/o. 0820: D/c'd amb. to home.
[2024-03-14 11:35] VITALS: BP 138/73; PULSE 104; TEMP 36.8; O2SAT 97
--- NOTE | 2024-03-14 11:50 | PC.NURSE ---
pt arrives with axillary wound open to air, packing already removed. pt stated he showered before coming here. Wound irrigated with NS and then repacked with 1/2 nuguaze per sterile technique. Wound Covered with 4x4 and paper tape. Skin prep then applied to outer tape per pt request to hold tape in place. pt tolerated well with no complaints of pain or discomfort.
[2024-03-15 08:47] VITALS: BP 147/98; PULSE 91; TEMP 36.7; O2SAT 95
[2024-03-16 11:26] VITALS: BP 133/93; PULSE 105; TEMP 36.7; O2SAT 98
== END 2024-03-17 08:01 | disposition home or self-care (01) ==
LOC: INF 07:33
PROVIDERS: PCP Nurse Practitioner Family; Visit Provider Family Medicine
DX: A41.9 Sepsis, unspecified organism (principal); L03.90 Cellulitis, unspecified

== ENCOUNTER 2024-03-18 07:25 | Outpatient (RCR) | payer OTHER, SELFPAY ==
[2024-03-17 08:02] VITALS: BP 133/93; BP 138/73; PULSE 105; TEMP 36.7; O2SAT 98
[2024-03-17 08:15] VITALS: BP 155/99; PULSE 78; TEMP 36.6; O2SAT 95
--- NOTE | 2024-03-17 08:16 | PC.NURSE ---
0805:Pt. to [facility] amb. for daily dressing change. Seated in recliner. Wound open to air due to pt. showering before arrival. Wound depth 1cm, length 1cm. Site cleansed, flushed with saline. Packed with approx. 2 1/2 packing. Covered with folded 4x4 and secured with paper tape. Pt. tolerates without c/o. 0815: D/c'd amb. to home.
== END 2024-04-13 23:59 | disposition home or self-care (01) ==
LOC: INF 07:25
PROVIDERS: PCP Nurse Practitioner Family; Visit Provider Family Medicine
DX: L03.818 Cellulitis of other sites (principal)

== ENCOUNTER 2024-06-10 11:37 | Outpatient (OUT) | payer OTHER, SELFPAY ==
--- OUTSIDE RECORDS SUMMARY | 2024-06-10 11:43 | XMS_ITS | CCD ---
Author Organization [facility] Care Team Providers Care Recreation Therapy Aide Name Role Phone KEISHA SWARTZ Primary Care Physician Yadira Wheeler Unavailable Keisha Soriano Unavailable KEISHA SWARTZ Admitting Unavailable KEISHA SWARTZ Attending Unavailable KEISHA SWARTZ Primary Care Unavailable HOBarbie ., DR CORTEZ Admitting Unavailable JODEEY ., DR CORTEZ Attending Unavailable KEISHA SWARTZ Primary Care Unavailable HOY ., DR CORTEZ Consulting Unavailable KEISHA SWARTZ Admitting Unavailable KEISHA SWARTZ Attending Unavailable KEISHA SWARTZ Primary Care Unavailable KEISHA SWARTZ Consulting Unavailable Emerson ROMAN Attending Unavailable KEISHA SWARTZ Referring Unavailable NILLEmerson Attending Unavailable NILLEmerson Attending Unavailable NILLEmerson Attending Unavailable Allergies Allergy Classification Reported Allergen(s) Allergy Type Date of Onset Reaction(s) Facility (6 sources) Penicillin; Translations: [penicillin] Drug Allergy Unknown (qualifier value) [facility] (6 sources) Sulfamethoxazole / Trimethoprim; Translations: [sulfamethoxazole-t rimethoprim] Drug Allergy Vomiting (disorder) [facility] (2 sources) Dust Propensity to adverse reactions Unknown [facility] Other (2 sources) [place] Propensity to adverse reactions Unknown [facility] Other Medications Current Medications Medication Drug Class(es) Dates Sig (Normalized) Sig (Original) [id number] 200 actuat albuterol 0.09 mg/actuat metered dose inhaler (1 source) beta2-Adrenergic Agonist Start: 09-16-2022 take 2 puff(s) by inhalation four times daily as needed Albuterol Sulfate HFA 108 (90 Base) MCG/ACT 2 puffs Inhalation 4 times a day prn Sep, Active atorvastatin 40 mg oral tablet (5 sources) HMG-CoA Reductase Inhibitor Start: 01-11-2022 take 1 tablet by mouth once daily atorvastatin 40 mg Tab 40 mg = 1 tab(s), Oral, Daily, Refills(s) 0 Start Date: 01/11/22 Status: Ordered azithromycin 250 mg oral tablet (1 source) Macrolide Antimicrobial Start: 09-16-2022 Azithromycin 250 MG 2 tablet on the first day, then 1 tablet daily for 4 days Orally Once a day for 5 day(s) Sep, Active 12 hr buPROPion hydrochloride 150 mg extended release oral tablet (3 sources) Aminoketone Start: 01-24-2024 take 1 tablet by mouth once daily buPROPion 150 mg ER Tab 150 mg = 1 tab(s), Oral, Daily, Refills(s) 0 Start Date: 01/24/24 Status: Ordered doxycycline monohydrate 100 mg oral capsule (1 source) Tetracycline-class Drug Start: 08-06-2022 take 1 capsule by mouth every twelve hours Doxycycline Monohydrate 100 MG 1 capsule Orally every 12 hrs for 7 days Jul, Active erythromycin 0.005 mg/mg ophthalmic ointment (1 source) Macrolide, Macrolide Antimicrobial Start: 08-06-2022 Erythromycin 5 MG/GM 1 application into the lower eyelid of affected eye Ophthalmic Twice a day for 7 days Jul, Active glipiZIDE er 5 mg 24 hr extended release oral tablet (7 sources) Sulfonylurea Start: 01-11-2022 take 1 tablet by mouth once daily glipiZIDE 5 mg ER Tab 5 mg = 1 tab(s), Oral, Daily, Refills(s) 0 Start Date: 01/11/22 Status: Ordered lisinopril 10 mg oral tablet (7 sources) Angiotensin Converting Enzyme Inhibitor Start: 01-11-2022 take 1 tablet by mouth once daily lisinopril 10 mg Tab 10 mg = 1 tab(s), Oral, Daily, Refills(s) 0 Start Date: 01/11/22 Status: Ordered metFORMIN hydrochloride 500 mg oral tablet (7 sources) Biguanide Start: 01-11-2022 take 1 tablet by mouth twice daily metformin 500 mg oral tablet 500 mg = 1 tab(s), Oral, BID, Refills(s) 0 Start Date: 01/11/22 Status: Ordered metFORMIN HCl Ac tive omeprazole 40 mg delayed release oral capsule (5 sources) Proton Pump Inhibitor Start: 01-24-2024 take 1 capsule by mouth once daily omeprazole 40 mg Cap-DR 40 mg = 1 cap(s), Oral, Daily, Refills(s) 0 Start Date: 01/24/24 Status: Ordered Omeprazole 40 MG Oral for 90 Days Active predniSONE 20 mg oral tablet (1 source) Start: 09-16-2022 take 1 tablet by mouth every twelve hours predniSONE 20 MG 1 tablet Orally 2 times a day for 5 day(s) Sep, Active 24 hr venlafaxine 75 mg extended release oral capsule (5 sources) Serotonin and Norepinephrine Reuptake Inhibitor Start: 01-24-2024 take 2 capsules by mouth once daily venlafaxine 75 mg Cap-ER 150 mg = 2 cap(s), Oral, Daily, Refills(s) 0 Start Date: 01/24/24 Status: Ordered take [address] [facility] every twenty-four hours Effexor XR 150 MG 1 capsule with food Orally Once a day Active Problems Problem Classification Problem Date Documented Date Episodic/Chronic Anxiety disorders (5 sources) Anxiety 01-11-2022 Chronic Asthma (5 sources) Asthma 01-11-2022 Chronic Chronic obstructive pulmonary disease and bronchiectasis (1 source) Bronchitis, not specified as acute or chronic Episodic Conditions associated with dizziness or vertigo (5 sources) Meniere's disease 01-11-2022 Chronic Diabetes mellitus without complication (5 sources) Diabetes mellitus 01-11-2022 Chronic Disorders of lipid metabolism (5 sources) Hyperlipidemia 01-11-2022 Chronic Esophageal disorders (5 sources) Gastroesophageal reflux disease 01-11-2022 Chronic Essential hypertension (3 sources) Hypertensive disorder 01-24-2024 Chronic Gout and other crystal arthropathies (5 sources) Gout 01-11-2022 Chronic Inflammation; infection of eye (except that caused by tuberculosis or sexually transmitteddisease) (1 source) Hordeolum externum right lower eyelid Episodic Mood disorders (5 sources) Depressive disorder 01-11-2022 Chronic Other ear and sense organ disorders (5 sources) Hearing loss 01-11-2022 Chronic Other endocrine disorders (5 sources) Male hypogonadism 01-11-2022 Chronic Other male genital disorders (5 sources) Impotence 01-11-2022 Chronic Other nutritional; endocrine; and metabolic disorders (5 sources) Body mass index 30+ - obesity 01-12-2022 Chronic Other nutritional; endocrine; and metabolic disorders (3 sources) Obese class III 01-24-2024 Chronic Residual codes; unclassified (5 sources) Obstructive sleep apnea syndrome 01-11-2022 Chronic Skin and subcutaneous tissue infections (16 sources) Abscess of lower limb; Translations: [Cutaneous abscess of left lower limb] Onset: 01-10-2022 Episodic Unclassified (3 sources) Carbuncle of left axilla 01-24-2024 Results Test Name Value Interpretation Reference Range Facility General Surgery Office/Clini c Noteon 03-17-2024 General Surgery Office/Clinic Note General Surgery Office/Clinic Note Chief Complaint follow up abscess HPI Staff 4 week follow up post I/D left axillary abscess. Packing daily. Scant serosanguineous drainage on outer dressing. Denies soreness. History of Present Illness 4 weeks s/p drainage/packing of left axillary abscess; cx with MRSA; completed antibiotics; still having area packed daily at hospital; no drainage; denies pain. Review of Systems ROS - Provider Constitutional: no fever, no sweats, no weight loss. Eyes: no glasses, no blurred vision, no visual loss. ENMT: no dentures, no hoarseness, no swallowing difficulties, no hearing loss, no ear infection(s), no nose bleeds. Cardiovascular: normal blood pressure, no chest pain, regular heartbeat, no heart murmur. Respiratory: no shortness of breath, no cough, no asthma, no wheezing. Gastrointestinal: no nausea, no vomiting, no diarrhea, no constipation, no blood in stool, no change in bowel habits, no abdominal pain, no hepatitis. Genitourinary: no kidney stones, no urine infection, no dysuria. Musculoskeletal: no pain, no weakness. Skin: no changing moles, no rash, no skin lumps. Neurologic: no seizures, no epilepsy, no headache. Psychiatric: no emotional or psychiatric problem. Heme/Lymph: no bleeding problems, no anemia, no blood clots, no transfusions. Allergy/Immunologic: no swollen lymph nodes/glands, no IV drug abuse. Other: Additional ROS info: Except as noted in the above Review of Systems and in the History of Present Illness, all other systems have been reviewed and are negative or noncontributory. Physical Exam skin: left axilla with 7 mm open area, tracks 7 mm, healthy granulation tissue; no drainage or cellulitis; skin irritation from tape. Assessment/Plan 1. Cutaneous abscess of left axilla (L02.412: Cutaneous abscess of left axilla) healing well; discontinue packing; wash with soap and water daily and cover with dry dressing until area scabs over; call with problems/questions. Follow-up No qualifying data available Problem List/Past Medical History Ongoing Abscess of left thigh Anxiety Asthma Axillary abscess Axillary abscess BMI 37.0-37.9, adult Carbuncle of left axilla Chronic gout Class 3 obesity Depression Diabetes Erectile dysfunction GERD (gastroesophageal reflux disease) Hearing loss Hyperlipidemia Hypertension Male hypogonadism Meniere's disease TERESA (obstructive sleep apnea) Historical No qualifying data Procedure/Surgical History Incision and drainage of abscess (02/19/2024), Dilatation of esophagus, Meniscal repair, Repair of anterior cruciate ligament of knee joint, Strabismus surgery, Tonsillectomy, Uvulectomy. Medications atorvastatin 40 mg Tab, 40 mg= 1 tab(s), Oral, Daily buPROPion 150 mg ER Tab, 150 mg= 1 tab(s), Oral, Daily glipiZIDE 5 mg ER Tab, 5 mg= 1 tab(s), Oral, Daily lisinopril 10 mg Tab, 10 mg= 1 tab(s), Oral, Daily metformin 500 mg oral tablet, 500 mg= 1 tab(s), Oral, BID omeprazole 40 mg Cap-DR, 40 mg= 1 cap(s), Oral, Daily venlafaxine 75 mg Cap-ER, 150 mg= 2 cap(s), Oral, Daily Allergies Bactrim (Vomiting) penicillin (Unknown) Social History Alcohol - Denies Alcohol Use, 01/12/2022 Substance Abuse - Denies Substance Abuse, 01/12/2022 Tobacco Never (less than 100 in lifetime) Tobacco Use:. Former smokeless tobacco user, quit more than 30 days ago Smokeless Tobacco Use:. Oral, 01/24/2024 Family History Depression: Mother. Hypertension: Father. Hypothyroidism: Father. Primary malignant neoplasm of female genital organ: Mother. Immunizations Vaccine Date Status Comments SARS-CoV-2 (COVID-19) mRNA-1273 vaccine 12/31/2020 Recorded SARS-CoV-2 (COVID-19) mRNA-1273 vaccine 11/28/2020 Recorded 2024-01-24: --SELECT TARGET POPULATION/OCCUPATION -- Normal [facility] Comment on above: Result Comment: Elec tronically Signed By: JESSIE OGLESBY, Emerson Bennett\.br\Date and Time Signed: 03/17/24 16:12 EDT Ambulatory Visit Summaryon 0 02-26-2024 Ambulatory Visit Summary Ambulatory Visit Summary DANIEL LITTLE :1975 Visit Date:02/26/2024 Ambulatory Visit Instructions Your Care Team Attending Physician - Emerson ROMAN MD Primary Care Physician - KEIHSA SWARTZ CNP This Is Your Medications List atorvastatin (atorvastatin 40 mg Tab) buPROPion (buPROPion 150 mg ER Tab) glipiZIDE (glipiZIDE 5 mg ER Tab) lisinopril (lisinopril 10 mg Tab) metformin (metformin 500 mg oral tablet) omeprazole (omeprazole 40 mg Cap-DR) venlafaxine (venlafaxine 75 mg Cap-ER) Procedures Performed Incision and drainage of abscess (02/19/2024), Dilatation of esophagus, Meniscal repair, Repair of anterior cruciate ligament of knee joint, Strabismus surgery, Tonsillectomy, Uvulectomy. What to do next Scheduled Follow-Up Appointments Saturday 4:00 PM EDT With: Emerson ROMAN MD Where: [facility] General Surgery [address], [address], [place] [address]- Medications What How Much When Instructions Unchanged atorvastatin (atorvastatin 40 mg Tab) 1 Tablets By Mouth Every day Unchanged buPROPion (buPROPion 150 mg ER Tab) 1 Tablets By Mouth Every day Unchanged glipiZIDE (glipiZIDE 5 mg ER Tab) 1 Tablets By Mouth Every day Unchanged lisinopril (lisinopril 10 mg Tab) 1 Tablets By Mouth Every day Unchanged metformin (metformin 500 mg oral tablet) 1 Tablets By Mouth 2 times a day Unchanged omeprazole (omeprazole 40 mg Cap-DR) 1 Capsules By Mouth Every day Unchanged venlafaxine (venlafaxine 75 mg Cap-ER) 2 Capsules By Mouth Every day Allergies Bactrim (Vomiting) penicillin (Unknown) Problems Ongoing - Any problem that you are currently receiving treatment for. Abscess of left thigh Anxiety Asthma BMI 37.0-37.9, adult Carbuncle of left axilla Chronic gout Class 3 obesity Depression Diabetes Erectile dysfunction GERD (gastroesophageal reflux disease) Hearing loss Hyperlipidemia Hypertension Male hypogonadism Meniere's disease TERESA (obstructive sleep apnea) Patient Survey You may receive a survey via text or e-mail asking about your office visit. Please share your experience with us by completing your survey. We appreciate your feedback and thank you for choosing us for your care. Normal [facility] General Surgery Office/Clini c Noteon 02-26-2024 General Surgery Office/Clinic Note General Surgery Office/Clinic Note Chief Complaint follow up axillary abscess HPI Staff 48 year old male presents on follow up from [facility]. Presented to ED 02/17 with complaint of left axillary pain, swelling and erythema. I/D of abscess completed on 02/18. Patient discharged from hospital on 02/19. Packing area daily. Continues on Doxycycline 100mg BID. History of Present Illness 1 week s/p drainage and packing of left axillary abscess while admitted to [facility]; having wound packed daily at outpatient infusion center; no drainage, minimal soreness, no fevers; changed antibiotic due to MRSA. Review of Systems ROS - Provider Constitutional: no fever, no sweats, no weight loss. Eyes: no glasses, no blurred vision, no visual loss. ENMT: no dentures, no hoarseness, no swallowing difficulties, no hearing loss, no ear infection(s), no nose bleeds. Cardiovascular: normal blood pressure, no chest pain, regular heartbeat, no heart murmur. Respiratory: no shortness of breath, no cough, no asthma, no wheezing. Gastrointestinal: no nausea, no vomiting, no diarrhea, no constipation, no blood in stool, no change in bowel habits, no abdominal pain, no hepatitis. Genitourinary: no kidney stones, no urine infection, no dysuria. Musculoskeletal: no pain, no weakness. Skin: no changing moles, no rash, no skin lumps. Neurologic: no seizures, no epilepsy, no headache. Psychiatric: no emotional or psychiatric problem. Heme/Lymph: no bleeding problems, no anemia, no blood clots, no transfusions. Allergy/Immunologic: no swollen lymph nodes/glands, no IV drug abuse. Other: Additional ROS info: Except as noted in the above Review of Systems and in the History of Present Illness, all other systems have been reviewed and are negative or noncontributory. Physical Exam skin: no cellulitis, decreased induration; wound tracks 2 cm, 1 cm opening, no purulence, granulating well. Assessment/Plan 1. Cutaneous abscess of left axilla (L02.412: Cutaneous abscess of left axilla) doing well, continue daily packing; complete antibiotics; f/u in 2 weeks; call sooner if problems/questions. Follow-up No qualifying data available Problem List/Past Medical History Ongoing Abscess of left thigh Anxiety Asthma Axillary abscess BMI 37.0-37.9, adult Carbuncle of left axilla Chronic gout Class 3 obesity Depression Diabetes Erectile dysfunction GERD (gastroesophageal reflux disease) Hearing loss Hyperlipidemia Hypertension Male hypogonadism Meniere's disease TERESA (obstructive sleep apnea) Historical No qualifying data Procedure/Surgical History Incision and drainage of abscess (02/19/2024), Dilatation of esophagus, Meniscal repair, Repair of anterior cruciate ligament of knee joint, Strabismus surgery, Tonsillectomy, Uvulectomy. Medications atorvastatin 40 mg Tab, 40 mg= 1 tab(s), Oral, Daily buPROPion 150 mg ER Tab, 150 mg= 1 tab(s), Oral, Daily glipiZIDE 5 mg ER Tab, 5 mg= 1 tab(s), Oral, Daily lisinopril 10 mg Tab, 10 mg= 1 tab(s), Oral, Daily metformin 500 mg oral tablet, 500 mg= 1 tab(s), Oral, BID omeprazole 40 mg Cap-DR, 40 mg= 1 cap(s), Oral, Daily venlafaxine 75 mg Cap-ER, 150 mg= 2 cap(s), Oral, Daily Allergies Bactrim (Vomiting) penicillin (Unknown) Social History Alcohol - Denies Alcohol Use, 01/12/2022 Substance Abuse - Denies Substance Abuse, 01/12/2022 Tobacco Never (less than 100 in lifetime) Tobacco Use:. Former smokeless tobacco user, quit more than 30 days ago Smokeless Tobacco Use:. Oral, 01/24/2024 Family History Depression: Mother. Hypertension: Father. Hypothyroidism: Father. Primary malignant neoplasm of female genital organ: Mother. Immunizations Vaccine Date Status Comments SARS-CoV-2 (COVID-19) mRNA-1273 vaccine 12/31/2020 Recorded SARS-CoV-2 (COVID-19) mRNA-1273 vaccine 11/28/2020 Recorded 2024-01-24: --SELECT TARGET POPULATION/OCCUPATION -- [facility] Comment on above: Result Comment: Elec tronically Signed By: JESSIE OGLESBY, Emerson Bennett\.br\Date and Time Signed: 02/26/24 16:44 EDT Ambulatory Visit Summaryon 0 01-24-2024 Ambulatory Visit Summary Ambulatory Visit Summary DANIEL LITTLE :1975 Visit Date:01/24/2024 Ambulatory Visit Instructions Your Care Team Attending Physician - Emerson ROMAN MD Primary Care Physician - KEISHA SWARTZ CNP Referring Physician - KEISHA SWARTZ CNP This Is Your Medications List Contact prescribing physician if questions or concerns atorvastatin (atorvastatin 40 mg Tab) buPROPion (buPROPion 150 mg ER Tab) glipiZIDE (glipiZIDE 5 mg ER Tab) lisinopril (lisinopril 10 mg Tab) metformin (metformin 500 mg oral tablet) omeprazole (omeprazole 40 mg Cap-DR) venlafaxine (venlafaxine 75 mg Cap-ER) Procedures Performed Dilatation of esophagus, Meniscal repair, Repair of anterior cruciate ligament of knee joint, Strabismus surgery, Tonsillectomy, Uvulectomy. Discharge Vitals Heart Rate (Peripheral) 72 Respiratory Rate 16 Blood Pressure 128/84 Height 190.5 cm Height 75 in Weight 138.7 kg Weight 305.14 lb BMI 38.22 Medications What How Much When Instructions Unchanged atorvastatin (atorvastatin 40 mg Tab) 1 Tablets By Mouth Every day Contact prescribing physician if questions or concerns Unchanged buPROPion (buPROPion 150 mg ER Tab) 1 Tablets By Mouth Every day Contact prescribing physician if questions or concerns Unchanged glipiZIDE (glipiZIDE 5 mg ER Tab) 1 Tablets By Mouth Every day Contact prescribing physician if questions or concerns Unchanged lisinopril (lisinopril 10 mg Tab) 1 Tablets By Mouth Every day Contact prescribing physician if questions or concerns Unchanged metformin (metformin 500 mg oral tablet) 1 Tablets By Mouth 2 times a day Contact prescribing physician if questions or concerns Unchanged omeprazole (omeprazole 40 mg Cap-DR) 1 Capsules By Mouth Every day Contact prescribing physician if questions or concerns Unchanged venlafaxine (venlafaxine 75 mg Cap-ER) 2 Capsules By Mouth Every day Contact prescribing physician if questions or concerns Allergies Bactrim (Vomiting) penicillin (Unknown) Problems Ongoing - Any problem that you are currently receiving treatment for. Abscess of left thigh Anxiety Asthma BMI 37.0-37.9, adult Chronic gout Class 3 obesity Depression Diabetes Erectile dysfunction GERD (gastroesophageal reflux disease) Hearing loss Hyperlipidemia Hypertension Male hypogonadism Meniere's disease TERESA (obstructive sleep apnea) Patient Survey You may receive a survey via text or e-mail asking about your office visit. Please share your experience with us by completing your survey. We appreciate your feedback and thank you for choosing us for your care. Normal [facility] INSULINon 10-01-2022 Insulin 19.0 uIU/mL Normal 2.6-24.9 [facility] Comment on above: Performed By: #### I NSULIN #### [facility] [address] [place] [address] Dr. Dong Perez CBC AUTO DIFFon 09-29-2022 BASO # 0.1 103/ul Normal 0.0-0.1 [facility] Comment on above: Performed By: #### C BC #### [facility] [address] [address] [address] Dong Perez Basophils/100 WBC (Bld) 0.9 % Normal 0.2-2.0 [facility] Comment on above: Performed By: #### C BC #### [facility] [address] [address] [address] Dong Perez EO # 0.3 103/ul Normal 0.0-0.7 [facility] Comment on above: Performed By: #### C BC #### [facility] [address] [address] [address] Dong Perez Eosinophils/100 WBC (Bld) 3.7 % Normal 0.9-7.0 [facility] Comment on above: Performed By: #### C BC #### [facility] [address] [place] [address] Dr. Dong Perez Erythrocyte distribution width (RBC) [Ratio] 13.2 % Normal 11.0-15.0 [facility] Comment on above: Performed By: #### C BC #### [facility] [address] [place] [address] Dr. Dong Perez Hematocrit (Bld) [Volume fraction] 47.9 % Normal 42.0-54.0 [facility] Comment on above: Performed By: #### C BC #### [facility] [address] [place] [address] Dr. Dong Perez Hemoglobin (Bld) [Mass/Vol] 15.7 g/dL Normal 14.0-18.0 [facility] Comment on above: Performed By: #### C BC #### [facility] [address] [place] [address] Dr. Dong Perez IG # 0.10 10e3/ul Critically high 0.00-0.03 [facility] Comment on above: Performed By: #### C BC #### [facility] [address] [place] [address] Dr. Dong Perez IG % 1.1 % Critically high 0.0-0.5 [facility] Comment on above: Performed By: #### C BC #### [facility] [address] [place] [address] Dr. Dong Perez LYMPH # 3.5 103/ul Normal 1.2-3.8 [facility] Comment on above: Performed By: #### C BC #### [facility] [address] [place] [address] Dr. Dong Perez Lymphocytes/100 WBC (Bld) 37.9 % Normal 20.5-60.0 [facility] Comment on above: Performed By: #### C BC #### [facility] [address] [place] [address] Dr. Dong Perez MANUAL DIFF REQ NO Normal [facility] Comment on above: Performed By: #### C BC #### [facility] [address] [place] [address] Dr. Dong Perez MCH (RBC) [Entitic mass] 25.7 pg Critically low 25.9-34.0 [facility] Comment on above: Performed By: #### C BC #### [facility] [address] [place] [address] Dr. Dong Perez MCHC (RBC) [Mass/Vol] 32.8 g/dL Normal 29.9-35.2 [facility] Comment on above: Performed By: #### C BC #### [facility] [address] [place] [address] Dr. Dong Perez MCV (RBC) [Entitic vol] 78.4 fL Critically low 80.0-94.0 [facility] Comment on above: Performed By: #### C BC #### [facility] [address] [place] [address] Dr. Dong Perez MONO # 0.5 103/ul Normal 0.3-0.8 [facility] Comment on above: Performed By: #### C BC #### [facility] [address] [place] [address] Dr. Dong Perez Monocytes/100 WBC (Bld) 5.8 % Normal 1.7-12.0 [facility] Comment on above: Performed By: #### C BC #### [facility] [address] [place] [address] Dr. Dong Perez NEUT # 4.6 103/ul Normal 1.4-6.5 [facility] Comment on above: Performed By: #### C BC #### [facility] [address] [place] [address] Dr. Dong Perez Neutrophils/100 WBC (Bld) 50.6 % Normal 43.0-75.0 [facility] Comment on above: Performed By: #### C BC #### [facility] [address] [place] [address] Dr. Dong Perez Platelet mean volume (Bld) [Entitic vol] 9.2 fL Critically low 9.5-13.5 [facility] Comment on above: Performed By: #### C BC #### [facility] [address] [address] [address] Dong Perez PLT 327 103/ul Normal 150-450 [facility] Comment on above: Performed By: #### C BC #### [facility] [address] [id number] Dong Perez RBC 6.11 106/ul Critically high 4.70-6.10 [facility] Comment on above: Performed By: #### C BC #### [facility] [id number] Dong Perez WBC 9.2 103/ul Normal 4.0-11.0 [facility] Comment on above: Performed By: #### C BC #### [facility] [address] [place] [address] Dr. Dong Perez DIRECT LDLon 09-29-2022 Cholesterol in LDL [Mass/Vol] 115 mg/dL Normal [facility] Comment on above: Performed By: #### D LDL, LIPID, CMP #### [facility] [address] [place] [address] Dr. Dong Perez DLDL NORMAL SEE BELOW Normal [facility] Comment on above: Result Comment: <100 mg/dl OPTIMAL 100 - 129 mg/dl NEAR OR ABOVE OPTIMAL 130 - 159 mg/dl BORDERLINE HIGH 160 - 189 mg/dl HIGH >190 mg/dl VERY HIGH Performed By: #### D LDL, LIPID, CMP #### [facility] [address] [place] [address] Dr. Dong Perez GLYCOHEMOGLOBIN A1Con 2022 ADA RECOMMENDATION SEE BELOW Normal [facility] Comment on above: Result Comment: ADA RECOMMENDED LIMIT 4.0 - 6.0 ADA THERAPEUTIC TARGET < 7.0 ACTION SUGGESTED > 7.0 Performed By: #### A 1C #### [facility] [address] [place] [address] Dr. Dong Perez Glucose [Mass/Vol] 289 mg/dL Normal [facility] Comment on above: Performed By: #### A 1C #### [facility] [address] [place] [address] Dr. Dong Perez HbA1c (Bld) [Mass fraction] 11.7 % Critically high 4.5-6.2 [facility] Comment on above: Performed By: #### A 1C #### [facility] [address] [place] [address] Dr. Dong Perez LIPID PROFILEon 09-29-2022 CHOL-HDL RATIO NORM SEE BELOW Normal [facility] Comment on above: Result Comment: 3.3 - 4.4 LOW RISK 4.4 - 7.1 AVERAGE RISK 7.1 - 11.0 MODERATE RISK >11.0 HIGH RISK Performed By: #### D LDL, LIPID, CMP #### [facility] [address] [address] [address] Dong Perez Cholesterol [Mass/Vol] 237 mg/dL Critically high <=200 [facility] Comment on above: Performed By: #### D LDL, LIPID, CMP #### [facility] [address] [place] [address] Dr. Dong Perez Cholesterol in HDL [Mass/Vol] 35 mg/dL Critically low 40-60 [facility] Comment on above: Performed By: #### D LDL, LIPID, CMP #### [facility] [address] [place] [address] Dr. Dong Perez Cholesterol in LDL [Mass/Vol] 104.8 mg/dL Normal [facility] Comment on above: Performed By: #### D LDL, LIPID, CMP #### [facility] [address] [address] [address] Dong Perez Cholesterol.total/Cho lesterol in HDL [Mass ratio] 6.8 {ratio} Normal [facility] Comment on above: Performed By: #### D LDL, LIPID, CMP #### [facility] [address] [place] [address] Dr. Dong Perez HDL NORMAL > or = 60 mg/dl - LO W CARDIOVASCULAR RISK <40 mg/dl - HIGH CARDIOVASCULAR RISK Normal [facility] Comment on above: Performed By: #### D LDL, LIPID, CMP #### [facility] [address] [place] [address] Dr. Dong Perez LDL CALC NORMAL SEE BELOW Normal [facility] Comment on above: Result Comment: <100 mg/dl OPTIMAL 100 - 129 mg/dl NEAR OR ABOVE OPTIMAL 130 - 159 mg/dl BORDERLINE HIGH 160 - 189 mg/dl HIGH >190 mg/dl VERY HIGH Performed By: #### D LDL, LIPID, CMP #### [facility] [address] [address] [address] Dong Perez Triglyceride [Mass/Vol] 486 mg/dL Critically high <=150 [facility] Comment on above: Performed By: #### D LDL, LIPID, CMP #### [facility] [address] [address] [address] Dong Perez VLDL CALC 97.2 mg/dL Normal [facility] Comment on above: Performed By: #### D LDL, LIPID, CMP #### [facility] [address] [address] [address] Dong Perez PROF 14(COMP METB)on 023 Albumin [Mass/Vol] 3.6 g/dL Normal 3.4-5.0 [facility] Comment on above: Performed By: #### D LDL, LIPID, CMP #### [facility] [address] [address] [address] Dong Perez Albumin/Globulin [Mass ratio] 1.1 {ratio} Normal [facility] Comment on above: Performed By: #### D LDL, LIPID, CMP #### [facility] [address] [address] [address] Dong Perez ALP [Catalytic activity/Vol] 117 U/L Critically high 46-116 [facility] Comment on above: Performed By: #### D LDL, LIPID, CMP #### [facility] [address] [address] [address] Dong Perez ALT [Catalytic activity/Vol] 24 U/L Normal 16-63 [facility] Comment on above: Performed By: #### D LDL, LIPID, CMP #### [facility] [address] [address] [address] Dong Perez Anion gap [Moles/Vol] 12.4 mmol/L Normal [facility] Comment on above: Performed By: #### D LDL, LIPID, CMP #### [facility] [address] [address] [address] Dong Perez AST [Catalytic activity/Vol] 13 U/L Critically low 15-37 [facility] Comment on above: Performed By: #### D LDL, LIPID, CMP #### [facility] [address] [address] [address] Dong Perez Bilirubin [Mass/Vol] 0.5 mg/dL Normal 0.2-1.0 [facility] Comment on above: Performed By: #### D LDL, LIPID, CMP #### [facility] [address] [address] [address] Dong Perez Calcium [Mass/Vol] 8.9 mg/dL Normal 8.5-10.1 [facility] Comment on above: Performed By: #### D LDL, LIPID, CMP #### [facility] [address] [place] [address] Dr. Dong Perez Chloride [Moles/Vol] 100 mmol/L Normal 98-107 [facility] Comment on above: Performed By: #### D LDL, LIPID, CMP #### [facility] [address] [place] [address] Dr. Dong Perez CO2 [Moles/Vol] 27.9 mmol/L Normal 21.0-32.0 [facility] Comment on above: Performed By: #### D LDL, LIPID, CMP #### [facility] [address] [place] [address] Dr. Dong Perez Creatinine [Mass/Vol] 0.80 mg/dL Normal 0.70-1.30 [facility] Comment on above: Performed By: #### D LDL, LIPID, CMP #### [facility] [address] [place] [address] Dr. Dong Perez EGFR-AF ENGLISH >60 Normal >=60 [facility] Comment on above: Performed By: #### D LDL, LIPID, CMP #### [facility] [address] [place] [address] Dr. Dong Perez EGFR-NON AF ENGLISH >60 Normal >=60 [facility] Comment on above: Performed By: #### D LDL, LIPID, CMP #### [facility] [address] [address] [address] Dong Perez Globulin (S) [Mass/Vol] 3.3 g/dL Normal [facility] Comment on above: Performed By: #### D LDL, LIPID, CMP #### [facility] [address] [address] [address] Dong Perez Glucose [Mass/Vol] 351 mg/dL Critically high 74-106 [facility] Comment on above: Performed By: #### D LDL, LIPID, CMP #### [facility] [address] [place] [address] Dr. Dong Perez Potassium [Moles/Vol] 4.3 mmol/L Normal 3.5-5.1 [facility] Comment on above: Performed By: #### D LDL, LIPID, CMP #### [facility] [address] [place] [address] Dr. Dong Perez Protein [Mass/Vol] 6.9 g/dL Normal 6.4-8.2 [facility] Comment on above: Performed By: #### D LDL, LIPID, CMP #### [facility] [address] [place] [address] Dr. Dong Perez Sodium [Moles/Vol] 136 mmol/L Normal 136-145 [facility] Comment on above: Performed By: #### D LDL, LIPID, CMP #### [facility] [address] [place] [address] Dr. Dong Perez Urea nitrogen [Mass/Vol] 12.0 mg/dL Normal 7.0-18.0 [facility] Comment on above: Performed By: #### D LDL, LIPID, CMP #### [facility] [address] [place] [address] Dr. Dong Perez Urea nitrogen/Creatinine [Mass ratio] 15.0 mg/mg Normal [facility] Comment on above: Performed By: #### D LDL, LIPID, CMP #### [facility] [address] [place] [address] Dr. Dong Perez WOUND CULTUREon 01-15-2022 Antimicrobial Susceptibility Comment Normal [facility] Comment on above: Result Comment: S = Susceptible; I = Intermediate; R = Resistant P = Positive; N = Negative MICS are expressed in micrograms per mL Antibiotic RSLT#1 RSLT#2 RSLT#3 RSLT#4 Ciprofloxacin R Clindamycin S Erythromycin R Gentamicin S Levofloxacin I Linezolid S Oxacillin R Penicillin R Rifampin S Tetracycline S Trimethoprim/Sulfa S Vancomycin S Performed By: #### C XWND #### [facility] [address] [address] [address] Dong Perez Bacteria identified Aer cx Nom (Unsp spec) Final report Abnormal [facility] Comment on above: Performed By: #### C XWND #### [facility] [address] [address] [address] Dong Perez Result 1 Comment Abnormal [facility] Comment on above: Result Comment: Meth icillin - resistant Staphylococcus aureus Based on resistance to oxacillin this isolate would be resistant to all currently available beta-lactam antimicrobial agents, with the exception of the newer cephalosporins with anti-MRSA activity, such as Ceftaroline Moderate growth Performed By: #### C XWND #### [facility] [address] [address] [address] Dong Perez Vital Signs Date Time Vital Sign Value Performing Clinician Facility 01-24-2024 14:24-0400 Blood Pressure Location Emerson ROMAN [facility] [place] 01-24-2024 14:24-0400 Diastolic blood pressure 84 mm[Hg] Emerson ROMAN [facility] [place] 01-24-2024 14:24-0400 Heart rate 72 /min Emerson ROMAN [facility] [place] 01-24-2024 14:24-0400 Respiratory rate 16 /min Emerson ROMAN [facility] [place] 01-24-2024 14:24-0400 Systolic blood pressure 128 mm[Hg] Emerson ROMAN [facility] [place] 09-16-2022 13:35-0500 Body height 193.04 cm Keisha Godwinmond Other [facility] Other 09-16-2022 13:35-0500 Body mass index (BMI) [Ratio] 37.85 kg/m2 Keisha Godwinmond Other [facility] Other 09-16-2022 13:35-0500 Body temperature 98.4 [degF] Keisha Godwinmond Other [facility] Other 09-16-2022 13:35-0500 Body weight 141.07 kg Keisha Godwinmond Other [facility] Other 09-16-2022 13:35-0500 Respiratory rate 18 /min Keisha Soriano Other [facility] Other 09-16-2022 13:35-0500 SaO2% (BldA) [Mass fraction] 99 % Keisha Soriano Other [facility] Other 08-06-2022 17:05-0500 Body height 193.04 cm Yadira Wheeler Other [facility] Other 08-06-2022 17:05-0500 Body mass index (BMI) [Ratio] 39.56 kg/m2 Yadira Wheeler Other [facility] Other 08-06-2022 17:05-0500 Body temperature 97.3 [degF] Yadira Wheeler Other [facility] Other 08-06-2022 17:05-0500 Body weight 147.42 kg Yadira Wheeler Other [facility] Other 08-06-2022 17:05-0500 Respiratory rate 18 /min Yadira Wheeler Other [facility] Other 08-06-2022 17:05-0500 SaO2% (BldA) [Mass fraction] 95 % Yadira Wheeler Other [facility] Other 01-12-2022 15:55-0400 Blood Pressure Location Emerson BENEDICTL [facility] [place] 01-12-2022 15:55-0400 Body temperature 98.96 [degF] Emerson MARICHUYL [facility] [place] 01-12-2022 15:55-0400 Diastolic blood pressure 80 mm[Hg] Emerson NILL [facility] [place] 01-12-2022 15:55-0400 Heart rate 76 /min Emerson NILL [facility] [place] 01-12-2022 15:55-0400 Respiratory rate 16 /min Emerson NILL [facility] [place] 01-12-2022 15:55-0400 Systolic blood pressure 120 mm[Hg] Emerson NILL [facility] [place] Encounters Encounter Date Encounter Type Care Provider Facility Start: 03-17-2024 End: 03-17-2024 ambulatory Emerson ROMAN Facility:[facility] Start: 03-17-2024 End: 03-17-2024 Patient encounter procedure Emerson R NILL [facility] Start: 02-26-2024 End: 02-26-2024 ambulatory Emerson R NILL Facility:[facility] Start: 02-26-2024 End: 02-26-2024 Patient encounter procedure Emerson R NILL [facility] Start: 02-18-2024 End: 02-18-2024 ambulatory Emerson R NILL Facility:[id number] Start: 01-24-2024 End: 01-24-2024 ambulatory Emerson R NILL Facility:[facility] Start: 01-24-2024 End: 01-24-2024 Patient encounter procedure Emerson R NILL [facility] Start: 10-06-2022 Encounter for genera l adult medical examination without abnormal findings KEISHA SWRATZ [facility] Start: 09-29-2022 End: 09-30-2022 ambulatory KEISHA SWARTZ Facility:[facility] Start: 09-29-2022 End: 09-30-2022 Encounter for general adult medical examination without abnormal findings KEISHA SWARTZ Facility:[facility] Start: 09-16-2022 End: 09-16-2022 ambulatory Keisha Soriano Other [facility] Other Start: 09-16-2022 Office outpatient vi sit 15 minutes Keisha Soriano [facility] Start: 08-06-2022 End: 08-06-2022 ambulatory Yadiraailyn Wheeler Other [facility] Other Start: 08-06-2022 Office outpatient ne w 20 minutes Yadiraailyn Wheeler [facility] Start: 07-16-2022 ambulatory KEISHA SWARTZ Facility: [facility] Start: 01-23-2022 End: 01-23-2022 Patient encounter procedure Emerson R NILL [facility] [place] Start: 01-12-2022 End: 01-12-2022 Patient encounter procedure Emerson BENEDICTL [facility] [place] Start: 01-10-2022 End: 01-10-[address] DIEGO GUTIERREZ . Facility: Procedures Date Procedure Procedure Detail Performing Clinician Start: 02-19-2024 Incision and drainag e of abscess Emerson BENEDICTL Comment on above: left axilla Dilatation of esopha marco antonio (disorder) Emerson BENEDICTL Excision of uvula Emerson KAUR LL History of operative procedure on knee Emerson BENEDICTL Repair of anterior c ruciate ligament of knee joint Emerson NILL Repair of meniscus Emerson N ILL Strabismus surgery Emerson N ILL Tonsillectomy Emerson BENEDICTL Immunizations Immunization Date Immunization Notes Care Provider Reed montano 12-31-2020 SARS-CoV-2 (COVID-19 ) mRNA-1273 vaccine Emerson BENEDICTL [facility] 11-28-2020 SARS-CoV-2 (COVID-19 ) mRNA-1273 vaccine Emerson NILL [facility] Comment on above: Result Comment: 2023: --SELECT TARGET POPULATION/OCCUPATION-- Payers Date Payer Category Payer Private Health Insurance [id number] 1975 Unknown [id number] 2.16.84 [id number] 1975 Unknown [id number] 2.16.84 [id number] 1975 Unknown [id number] 2.16.84 [id number] 1975 Unknown [id number] 2.16.8 [id number] 1975 Unknown [id number] 2.16.8 [id number] 1975 Unknown [id number] 2.16.8 [id number] 1975 Unknown [id number] 2.16.8 [id number] 1959 Private Health Insurance [id number] 1959 Self-pay [id number] Social History Date Type Detail Facility Start: 01-12-2022 End: 01-24-2024 Tobacco smoking status Never smoked tobacco (finding) [facility] [place] Tobacco smoking status Former sm okeless tobacco user, quit more than 30 days ago [facility] [place] Sex Assigned At Male Genera l Surgery [employer] Functional Status Date Assessment Result Facility 01-24-2024 Functional Status N/A [facility] [place] 01-12-2022 Functional Status N/A [facility] [employer] Clinical Notes 01-16-2022 to 01-24-2024 Note Date & Type Note Facility 01-24-2024 Note General Surgery Offi ce/Clinic Note Chief Complaint consultation for boil HPI Staff 48 year old male presents on consultation from Shelby Swartz for boil left axilla. Prescribed Doxycycline 100mg BID x 10 days on 01/20. Reports he developed a small tender nodule to axilla approximately one week ago. He squeezed History of Present Illness 48 yo male with h/o DMII, asthma, htn, hyperlipidemia, GERD, TERESA, referred for left axillary infection; patient reports noticing a tender nodule in left axilla 5 days ago; tried to squeeze the area, no drainage, but developed marked swelling and induration, pain; seen by Keisha Swartz 3 days ago and placed on Doxycycline; area has decreased in size, no drainage, minimal soreness; no fevers. Review of Systems PHQ Score Initial Depression Screen Score: 0 SCORE ROS - Provider Constitutional: no fever, no sweats, no weight loss. Eyes: no glasses, no blurred vision, no visual loss. ENMT: no dentures, no hoarseness, no swallowing difficulties, no hearing loss, no ear infection(s), no nose bleeds. Cardiovascular: normal blood pressure, no chest pain, regular heartbeat, no heart murmur. Respiratory: no shortness of breath, no cough, no asthma, no wheezing. Gastrointestinal: no nausea, no vomiting, no diarrhea, no constipation, no blood in stool, no change in bowel habits, no abdominal pain, no hepatitis. Genitourinary: no kidney stones, no urine infection, no dysuria. Musculoskeletal: no pain, no weakness. Skin: no changing moles, no rash, no skin lumps. Neurologic: no seizures, no epilepsy, no headache. Psychiatric: no emotional or psychiatric problem. Heme/Lymph: no bleeding problems, no anemia, no blood clots, no transfusions. Allergy/Immunologic: no swollen lymph nodes/glands, no IV drug abuse. Other: Additional ROS info: Except as noted in the above Review of Systems and in the History of Present Illness, all other systems have been reviewed and are negative or noncontributory. Physical Exam Vitals & Measurements HR: 72(Peripheral) RR: 16 BP: 128/84 HT: 75 in HT: 190.5 cm WT: 138.7 kg WT: 305.14 lb BMI: 38.22 skin: minimal induration left axilla, 1 cm area of discoloration, no fluctuance or crepitus, no drainage or open areas. Assessment/Plan 1. Carbuncle of left axilla (L02.432: Carbuncle of left axilla) no evidence of cyst; complete course of antibiotics, keep area clean and dry; call with problems/questions. Follow-up With When Contact Information JESSIE OGLESBY, Emerson Bennett, JUSTYNA Only if needed [address] [place] [address]- Additional Instructions: Problem List/Past Medical History Ongoing Abscess of left thigh Anxiety Asthma BMI 37.0-37.9, adult Carbuncle of left axilla Chronic gout Class 3 obesity Depression Diabetes Erectile dysfunction GERD (gastroesophageal reflux disease) Hearing loss Hyperlipidemia Hypertension Male hypogonadism Meniere's disease TERESA (obstructive sleep apnea) Historical No qualifying data Procedure/Surgical History Dilatation of esophagus, Meniscal repair, Repair of anterior cruciate ligament of knee joint, Strabismus surgery, Tonsillectomy, Uvulectomy. Medications atorvastatin 40 mg Tab, 40 mg= 1 tab(s), Oral, Daily buPROPion 150 mg ER Tab, 150 mg= 1 tab(s), Oral, Daily glipiZIDE 5 mg ER Tab, 5 mg= 1 tab(s), Oral, Daily lisinopril 10 mg Tab, 10 mg= 1 tab(s), Oral, Daily metformin 500 mg oral tablet, 500 mg= 1 tab(s), Oral, BID omeprazole 40 mg Cap-DR, 40 mg= 1 cap(s), Oral, Daily venlafaxine 75 mg Cap-ER, 150 mg= 2 cap(s), Oral, Daily Allergies Bactrim (Vomiting) penicillin (Unknown) Social History Alcohol - Denies Alcohol Use, 01/12/2022 Substance Abuse - Denies Substance Abuse, 01/12/2022 Tobacco Never (less than 100 in lifetime) Tobacco Use:. Former smokeless tobacco user, quit more than 30 days ago Smokeless Tobacco Use:. Oral, 01/24/2024 Family History Depression: Mother. Hypertension: Father. Hypothyroidism: Father. Primary malignant neoplasm of female genital organ: Mother. Immunizations Vaccine Date Status Comments SARS-CoV-2 (COVID-19) mRNA-1273 vaccine 12/31/2020 Recorded SARS-CoV-2 (COVID-19) mRNA-1273 vaccine 11/28/2020 Recorded 2024-01-24: --SELECT TARGET POPULATION/OCCUPATION-- [facility] Comment on above: Result Comment: Elec tronically Signed By: Emerson ROMAN MD\.br\Date and Time Signed: 01/24/24 14:53 EDT 01-24-2024 Hospital Discharg e instructions Follow Up Care 01/24/2024 08:30:10 With:Emerson ROMAN MD, JUSTYNA Address: [address] [place] [id number]- When: only if needed [facility] [place] 09-16-2022 Evaluation note Encounter Date Diagnosis Assessment Notes Sep, Bronchitis (ICD-10 - J40) Acute bronchitis material was printed Drink plenty fluids, get plenty of rest. Take the azithromycin and prednisone as prescribed until gone. Use the albuterol inhaler as prescribed as needed for cough or shortness of breath. Take Tylenol or Motrin for aches pains or fevers. Follow-up with your family physician if no improvement in 2 to 3 days. [facility] Other 01-23-2023 Evaluation note* Encounter Date Diagnosis Assessment Notes Treatment Notes Treatment Clinical Notes Jul, Hordeolum externum right lower eyelid (ICD-10 - H00.012) Begin using RX ointment as directed. Encouraged patient to begin using warm compresses on affected area for 10 mins 3-6 times a day. Instructed pt not to touch or rub eyes. Practice good hand hygiene. Do not squeeze or try to pop open a stye. Do not share towels, pillows, or washcloths with others. Patient should follow up with pcp or eye doctor if symptoms persist or worsen over the next 2-3 days. Patient verbalized understanding and agreement with tx plan. [facility] Other 07-05-2022 Hospital Discharge instructions Follow Up Care 01/16/2022 15:53:44 With:Emerson ROMAN MD, SUR Address: [address] [place] [id number]- When: only if needed [facility] [place] Evaluation + Plan note Future Appointments Appointment Date:01/16/2022 03:40:00 PM Scheduled Provider:Emerson ROMAN MD Location:[facility] Appointment Type:[place] [id number] [facility] [place] Evaluation + Plan note Future Appointments Appointment Date:03/17/2024 04:00:00 PM Scheduled Provider:Emerson ROMAN MD Location[facility] Appointment Type:[facility] [place] 15 [facility] [place] History general Narrative - Reported* Type Description Date Medical History anxiety/depression Medical History seasonal allergies Medical History asthma Medical History diabetes type 2 Surgical History ACL repaired in right knee Surgical History throat surgery for sleep apnea (throat widening) Hospitalization History see surgical hx. [facility] Other Hospital course Narrative No data available for this section [facility] [place] [facility] Discharge instructions No data available for this section [facility] [place] Progress note No data available for this section [facility] [place] Summary Purpose Family History No Family History Records Found No data available for this section No data available for this section No data available for this section No Family History Records Found Advance Directives No Advanced Directives Records FoundNo Advanced Directives Records Found Additional Source Comments Care Team (unrecognized sect ion and content) Personnel Name: SHERIDAN VICTOR KEISHA Guajardo Address: [address] [place] [address] Personnel Name: SHERIDAN VICTOR KEISHA Guajardo Address: [address] [place] [address] Personnel Name: SHERIDAN VICTOR KEISHA Guajardo Address: Address: [address] [place] [address] Personnel Name: SHERIDAN VICTOR KEISHA Guajardo Address: Address: [address] [place] [address] Personnel Name: SHERIDAN VICTOR KEISHA Guajardo Address: Address: [address] [place] [address] REASON FOR VISIT (unrecogniz ed section and content) [facility] (unrecognized sect ion and content) No Status Records FoundNo Status Records Found INFORMATION SOURCE (unrecogn ized section and content) DATE CREATED AUTHOR 10/07/2022 [facility] DATE CREATED AUTHOR 'S FABI ATLUBA 03/19/2024 [facility] FOR RECORDS PERTAINING TO PATIENTS WHO ARE OR HAVE BEEN ENROLLED IN A CHEMICAL DEPENDENCY/SUBSTANCEABUSE PROGRAM, SOME INFORMATION MAY BE OMITTED. This clinical summary was aggregated from multiple sources. Caution should be exercised in using it in the provision of clinical care. This summary normalizes information from multiple sources, and as a consequence, information in this document may materially change the coding, format and clinical context of patient data. In addition, data may be omitted in some cases. CLINICAL DECISIONS SHOULD BE BASED ON THE PRIMARY CLINICAL RECORDS. [facility] provides no warranty or guarantee of the accuracy or completeness of information in this document.
--- NOTE | 2024-06-10 11:45 | XR_ITS ---
The [address] [address] Patient Name: DANIEL LITTLE MRN: [id number] date: 1975 Sex: M Assigned Patient Location: [facility] Current Patient Location: [facility] Accession/Order Number: [id number] Exam Date: 06/10/2024 11:50 Report Date: 06/14/2024 11:46 At the request of: CAMACHO SWARTZ Procedure: XR ribs LT min 3V w CXR1V EXAMINATION: XR ribs LT min 3V w CXR1V, XR sternum min 2V HISTORY: Left Side Rib Pain COMPARISON: No relevant comparison available. FINDINGS: LUNGS: No significant pulmonary parenchymal abnormalities. PLEURA: No pneumothorax, effusion, or pleural thickening. MEDIASTINUM: No visible mass or adenopathy. CARDIAC: No cardiomegaly or cardiac silhouette abnormality. RIBS: Normal. No significant arthropathy or acute abnormality. OTHER: Negative. XR/XR ribs LT min 3V w CXR1V IMPRESSION: 1. No appreciable rib abnormality. 2. No acute cardiac pulmonary process. 3. No appreciable abnormality of the sternum. Electronically authenticated by: CHUCK TAPIA Date: 06/14/2024 11:46
--- NOTE | 2024-06-10 11:52 | XR_ITS ---
The [address] [address] Patient Name: DANIEL LITTLE MRN: [id number] date: 1975 Sex: M Assigned Patient Location: [facility] Current Patient Location: Accession/Order Number: [id number] Exam Date: 06/10/2024 11:53 Report Date: 06/14/2024 11:43 At the request of: CAMACHO SWARTZ Procedure: XR hip LT 2V w/ pelvis PROCEDURE: XR hip LT 2V w/ pelvis HISTORY: Left Hip Pain COMPARISON: None. FINDINGS: BONES:No fracture, acute abnormality, or significant arthropathy. SOFT TISSUES:No visible soft tissue swelling. EFFUSION:None visible. OTHER: Negative. XR/XR hip LT 2V w/ pelvis IMPRESSION: 1. No acute bone abnormality or significant degenerative joint disease. Electronically authenticated by: CHUCK TAPIA Date: 06/14/2024 11:43
--- NOTE | 2024-06-10 11:52 | XR_ITS ---
The [address] [address] Patient Name: DANIEL LITTLE MRN: [id number] date: 1975 Sex: M Assigned Patient Location: [facility] Current Patient Location: [facility] Accession/Order Number: [id number] Exam Date: 06/10/2024 11:53 Report Date: 06/14/2024 11:46 At the request of: CAMACHO SWARTZ Procedure: XR sternum min 2V EXAMINATION: XR ribs LT min 3V w CXR1V, XR sternum min 2V HISTORY: Left Side Rib Pain COMPARISON: No relevant comparison available. FINDINGS: LUNGS: No significant pulmonary parenchymal abnormalities. PLEURA: No pneumothorax, effusion, or pleural thickening. MEDIASTINUM: No visible mass or adenopathy. CARDIAC: No cardiomegaly or cardiac silhouette abnormality. RIBS: Normal. No significant arthropathy or acute abnormality. OTHER: Negative. XR/XR sternum min 2V IMPRESSION: 1. No appreciable rib abnormality. 2. No acute cardiac pulmonary process. 3. No appreciable abnormality of the sternum. Electronically authenticated by: CHUCK TAPIA Date: 06/14/2024 11:46
== END 2024-06-10 11:38 | disposition home or self-care (01) ==
LOC: RAD 11:38
PROVIDERS: PCP Nurse Practitioner Family; Visit Provider Nurse Practitioner Family
DX: R07.81 Pleurodynia (principal); M25.552 Pain in left hip; R22.9 Localized swelling, mass and lump, unspecified
CPT/HCPCS: 71101; 71120; 73502

== ENCOUNTER 2024-10-02 14:50 | Outpatient (OUT) | payer OTHER, SELFPAY ==
--- NOTE | 2024-10-02 15:00 | XR_ITS ---
The [place] [id number] Patient Name: DANIEL LITTLE MRN: [id number] date: 1975 Sex: M Assigned Patient Location: [facility] Current Patient Location: [facility] Accession/Order Number: [id number] Exam Date: 10/02/2024 15:41 Report Date: 10/02/2024 15:42 At the request of: DIEGO GUTIERREZ MD Procedure: XR lumbar spine min 4V LUMBAR SPINE - 4 views CLINICAL HISTORY: M54.6 Lumbar pain radiculopathy COMPARISON: None FINDINGS: Vertebral body and disc space heights appear maintained. Mild endplate and facet joint degenerative changes. XR/XR lumbar spine min 4V IMPRESSION: MILD ENDPLATE AND FACET JOINT DEGENERATIVE CHANGES WITHOUT SIGNIFICANT DISC HEIGHT LOSS. Impression dictated by: Diogenes Tiwari Jr., D.OChong10/02/2024 3:42 PM Dictation Location: [place] [address] Electronically authenticated by: [id number] Y Date: 10/02/2024 15:42
== END 2024-10-02 14:51 | disposition home or self-care (01) ==
PROVIDERS: PCP Nurse Practitioner Family; Visit Provider Family Medicine
DX: M54.16 Radiculopathy, lumbar region (principal); M51.369 Other intervertebral disc degeneration, lumbar region without mention of lumbar back pain or lower extremity pain
CPT/HCPCS: 72110

== ENCOUNTER 2024-11-19 08:09 | Outpatient (REF) | payer OTHER, SELFPAY ==
[2024-11-19 15:43] LABS: C. Difficile PCR NEGATIVE
== END 2024-11-19 08:10 | disposition home or self-care (01) ==
LOC: LAB 08:09
PROVIDERS: PCP Nurse Practitioner Family; Visit Provider Nurse Practitioner Family
DX: R19.7 Diarrhea, unspecified (principal)
CPT/HCPCS: 87045; 87046; 87427; 87493

== ENCOUNTER 2025-01-13 11:17 | Outpatient (OUT) | payer OTHER, SELFPAY | END 2025-01-13 11:18 | disposition home or self-care (01) | LOC: LAB 11:19 | PROVIDERS: PCP Nurse Practitioner Family; Visit Provider Nurse Practitioner Family | DX: E11.9 Type 2 diabetes mellitus without complications (principal) | CPT/HCPCS: 36415; 83036 ==

== ENCOUNTER 2025-05-14 07:35 | Outpatient (RCR) | payer OTHER, SELFPAY ==
[2025-04-30 14:50] VITALS: BP 150/83; PULSE 104; TEMP 36.5; O2SAT 98
[2025-05-01 08:45] VITALS: BP 146/90; PULSE 89; TEMP 36.5; O2SAT 97
--- NOTE | 2025-05-01 09:04 | PC.NURSE ---
Dressing change to upper back completed as ordered. Large amount of purulent drainage, surrounding tissue red, inflammed and hard to touch. Patient denies pain thru dressing.
[2025-05-02 08:47] VITALS: BP 141/90; PULSE 84; TEMP 36.5; O2SAT 98
[2025-05-02 08:59] VITALS: BP 139/88; PULSE 84; TEMP 36.6; O2SAT 98
--- NOTE | 2025-05-02 09:00 | PC.NURSE ---
Dressing change performed per order this morning. Pt denies pain before, during, and after dressing change. States that it itches around where the tape is in contact with his skin. The skin under the tape has no noted redness or irritation. Wound appears to have blanchable redness and is firm and slightly warm to the touch. Per pt and SO at bedside, the drainage is better today than yesterday. Moderate amount of drainage noted on dressing from yesterday. No foul odor noted.
[2025-05-03 11:24] VITALS: BP 157/95; PULSE 90; TEMP 37; O2SAT 95
--- NOTE | 2025-05-03 11:25 | PC.NURSE ---
0800 Arrival ambulatory. 0820 old dressing removed from rt upper back area. patient had packing removed prior to showering this am. [id number] cm of induration/purplish red around opening of wound. irrigated with ns, small amount of purlulent drainage from opening. opening is approx 2.4 cm deep, 2.4 cm long and 3 mm wide. packed with 1/2 iodaform gauze approx 3-4 inches. noted area below incision from old tape burn, area around wound cleansed with soap and water. skin prep applied to intact skin, wound covered with 4x4 and abd, covered with elastomeric tape. patient tolerated well. denies pain, but complains of itching at wound site. released ambulatory
[2025-05-04 07:46] VITALS: BP 168/90; PULSE 88; TEMP 36.9; O2SAT 97
--- NOTE | 2025-05-04 07:53 | PC.NURSE ---
0740 Arrival ambulatory. 0740 old dressing removed from rt upper back area. [id number] cm of induration/purplish red around opening of wound. irrigated with ns, small amount of purlulent drainage from opening. opening is approx 2.0 cm deep, 2.0 cm long and 3 mm wide. packed with 1/2 iodaform gauze approx 3 inches. noted area below incision from old tape burn, area around wound cleansed with soap and water. skin prep applied to intact skin, wound covered with 4x4 and abd, covered with elastomeric tape. patient tolerated well. denies pain, but complains of itching at wound site. 0750 released ambulatory.
[2025-05-05 08:07] VITALS: BP 139/91; PULSE 93; TEMP 36.4; O2SAT 93
--- NOTE | 2025-05-05 08:09 | PC.NURSE ---
0745 Arrival ambulatory. patient had removed old dressing and packing before showering. dressing removed that was placed on after showering, small amount of bloody drainage noted. [id number] cm of induration/purplish red around opening of wound, appears to be improving,irrigated with ns, small amount of purlulent/bloody drainage from opening. opening is approx 2.0 cm deep, 2.0 cm long and 3 mm wide noted some tunneling approx 1 cm at 3 oclock position.. packed with 1/2 iodaform gauze approx -6 inches inches. noted area below incision from old tape burn healing well, area around wound cleansed with soap and water. skin prep applied to intact skin, wound covered with 4x4 and abd, covered with elastomeric tape. patient tolerated well. denies pain, but complains of itching at wound site. 0800 released ambulatory.
[2025-05-06 08:25] VITALS: BP 153/95; PULSE 88; TEMP 36; O2SAT 96
--- NOTE | 2025-05-06 08:28 | PC.NURSE ---
0805: Arrival ambulatory. Pleasant and talkative. Dressing to right upper back removed; small amount of bloody drainage noted. Approx. 10 cm of induration/purplish red around opening of wound, appears to be improving, irrigated with normal saline; scant amount of bloody drainage from opening. Opening is approx 2.0 cm deep, 2.0 cm long and 3 mm wide noted some tunneling approx 1 cm at 3 oclock position.. packed with 1/2 inch iodoform gauze approx. 6 inches inches. Area around wound cleansed with soap and water. Wound covered with folded abd, covered with elastomeric tape. Patient tolerated dressing change well. Denies pain, but complains of itching at wound site. Discharged ambulatory to private vehicle.
--- NOTE | 2025-05-07 07:53 | PC.NURSE ---
0740 Arrival ambulatory. patient had removed old dressing and packing before showering. dressing removed that was placed on after showering, small amount of bloody drainage noted. asurrounding tissue around wound reddish purplish, not as firm, unable to express any drainage from wound, states some soreness and itching, but much improved.,irrigated with ns, opening is approx 1.5 cm deep, 1.5 cm long and 3 mm wide noted some tunneling approx 1 cm at 3 oclock position.. packed with 1/2 iodaform gauze approx 4-5 inches. area around wound cleansed with soap and water. skin prep applied to intact skin, wound covered with 4x4 and abd, covered with elastomeric tape. patient tolerated well. 0750 released ambulatory.
[2025-05-08 09:53] VITALS: BP 135/88; PULSE 90; TEMP 36.7; O2SAT 97
--- NOTE | 2025-05-08 09:54 | PC.NURSE ---
Removed old dressing and packing. The surrounding tissue was firm and reddish/purple. Cleansed skin around with wound with soap and water. Irrigated wound with Normal Saline. Wound is approx 1.5 cm deep, 1.5 cm long and 3 mm wide. Packed wound with 1/2 iodoform gauze. Skin prep applied to surrounding skin, wound covered with 4x4 abdominal pad, then covered with elastomeric tape. Patient tolerated well.
[2025-05-09 09:13] VITALS: BP 137/88; PULSE 96; TEMP 36.3; O2SAT 98
--- NOTE | 2025-05-09 10:08 | PC.NURSE ---
Patient arrived with his dressing removed at home because he showered. The surrounding tissue was still firm and reddish/purple. Cleansed skin around the wound with soap and water. Irrigated wound with Normal Saline. Wound is approx 1.5 cm deep, 1.5 cm long and 3 mm wide. Packed wound with 1/2 iodoform gauze. Skin prep applied to surrounding skin, wound covered with 4x4 abdominal pad, then covered with elastomeric tape. Patient tolerated well.
[2025-05-10 08:09] VITALS: BP 167/98; PULSE 74; TEMP 35.9; O2SAT 99
--- NOTE | 2025-05-10 08:10 | PC.NURSE ---
old dressing removed from rt upper back (shoulder blade area), approx 3 inches of 1/2 packing removed. noted small amount of mucopurulent drainage on old dressing and packing, irrigated wound with ns.approx 1.5 cm deep with less than 1 cm tunneling at the 3 oclock position, cleansed skin with soap and water. surrounding wound purplish induration, is decreasing. some irritation of skin from tape. skin prep applied. repacked wound with 1/2 in iodaform gauze, covered with 1/4 of an abd pad, and secured with tape. tolerated well. released ambulatory
--- NOTE | 2025-05-12 08:10 | PC.NURSE ---
0800 arrival ambulatory for dressing change. Old dressing from R upper back area removed, small amount of pinkish yellow drainage noted on old dressing. packing removed approx 6 inches. Irrigated wound with normal saline. Wound measures 1.5 cm deep, and approx 1 cm long and 3 mm wide. Surrounding wound skin intact, purplish reddish in color, and firm, but color and firmness is improving. skin cleansed with soap and water, skin prep applied. Packed wound 2ih 1/2 in iodaform gauze, covered with 1/4 of abd and tape. tolerated well. released ambulatory
--- NOTE | 2025-05-13 08:51 | PC.NURSE ---
Pt. to [facility] for dressing change. Old dressing from right upper back area removed, small amount of pinkish yellow drainage noted on old dressing. Packing removed at home per . Irrigated wound with normal saline. Wound measures 1.5 cm deep, and approx 2 cm long and 3 mm wide. Surrounding wound skin intact, purplish reddish in color, and firm, but color and firmness is improving. Area cleansed with soap and water.applied. Packed wound 2 1/2 in iodoform packing. Covered with 1/4 of abd and tape. Tolerated without c/o. D/c'd amb. to home.
== END 2025-05-14 23:59 | disposition home or self-care (01) ==
LOC: INF 07:35
PROVIDERS: PCP Nurse Practitioner Family; Visit Provider Surgery
DX: Z48.00 Encounter for change or removal of nonsurgical wound dressing (principal)

== ENCOUNTER 2025-06-09 07:32 | Outpatient (RCR) | payer OTHER, SELFPAY ==
[2025-05-17 08:02] VITALS: BP 144/97; PULSE 51; TEMP 37.1; O2SAT 98
--- NOTE | 2025-05-17 08:03 | PC.NURSE ---
0750 Arrival ambulatory for dressing change. Old dressing removed from rt upper back. small amount of sero-purulent drainage noted on packing and abd. irrigated wound with ns, surrounding skin reddish purple and indurated approx 2-3 cm around wound, but much improved. skin intact around wound no open areas. wound approx 1.5 cm deep, x 1 cm in length by 0.3 cm wide, appears clean. repacked with 1/2 iodaform nugauze. skin prep applied to surrounding skin, covered with 1/4 of a abd, secured with tape. patient tolerated well. 0800 released ambulatory
[2025-05-18 07:48] VITALS: BP 149/94; PULSE 75; TEMP 36.4; O2SAT 92
--- NOTE | 2025-05-18 07:52 | PC.NURSE ---
0745 Arrival ambulatory patient removed packing this am for showering. irrigated wound with ns, surrounding skin reddish purple and indurated approx 2-3 cm around wound, but much improved. skin intact around wound no open areas. wound approx 1.5 cm deep, x 1 cm in length by 0.3 cm wide, appears clean. repacked with 1/2 iodaform nugauze. skin prep applied to surrounding skin, covered with 1/4 of a abd, secured with tape. patient tolerated well. 0800 released ambulatory
[2025-05-19 08:01] VITALS: BP 148/95; PULSE 90; TEMP 36.6; O2SAT 97
--- NOTE | 2025-05-19 08:02 | PC.NURSE ---
0800 rt upper back dressing and packing removed, moderate amount of mucopurulent drainage on packing and old dressing. irrigated wound with ns, surrounding skin reddish purple and indurated approx 2-3 cm around wound, but much improved. skin intact around wound no open areas. wound approx 1.5 cm deep, x 1 cm in length by 0.3 cm wide, appears clean. repacked with 1/2 iodaform nugauze. skin prep applied to surrounding skin, covered with 1/4 of a abd, secured with tape. patient tolerated well. 0810 released ambulatory
--- NOTE | 2025-05-20 07:54 | PC.NURSE ---
0735: Right upper back dressing removed, packing removed at home. Small amount of mucopurulent drainage on old dressing. Irrigated wound with normal saline. Surrounding skin reddish purple and indurated approx 2-3 cm around wound, improved since initial visit. Skin intact around wound no open areas. Wound approx 1.5 cm deep, x 1 cm in length by 0.3 cm wide.Packed with approx. 5 1/2 iodoform gauze. Skin prep applied to surrounding skin, covered with 1/4 of a ABD dressing. Secured with tape. Patient tolerated with no c/o discomfort. 0745: D/c'd amb. to home.
[2025-05-21 07:49] VITALS: BP 154/98; PULSE 94; TEMP 36.6; O2SAT 97
--- NOTE | 2025-05-21 08:01 | PC.NURSE ---
0750 rt upper back dressing and packing removed, moderate amount of mucopurulent drainage on packing and old dressing. irrigated wound with ns, surrounding skin reddish purple and indurated approx 2-3 cm around wound, but much improved. skin intact around wound no open areas. wound approx 1.5 cm deep, x 1 cm in length by 0.3 cm wide, appears clean. repacked with 1/2 iodaform nugauze. skin prep applied to surrounding skin, covered with 1/4 of a abd, secured with tape. patient tolerated well. 0800 released ambulatory
[2025-05-22 11:04] VITALS: BP 143/89; PULSE 94; TEMP 36.9; O2SAT 97
[2025-05-23 09:09] VITALS: BP 109/81; PULSE 101; TEMP 36.8; O2SAT 95
[2025-05-26 07:58] VITALS: BP 155/94; PULSE 93; TEMP 36.1; O2SAT 95
--- NOTE | 2025-05-26 08:00 | PC.NURSE ---
0755 rt upper back dressing and packing removed, small amount of mucopurulent drainage on packing (approx 10 cm of packing removed) and old dressing. irrigated wound with ns, surrounding skin reddish purple and indurated approx 2-3 cm around wound, but much improved. skin intact around wound no open areas. wound approx 1.5 cm deep, x 1 cm in length by 0.3 cm wide, appears clean. repacked with 1/2 iodaform nugauze. skin prep applied to surrounding skin, covered with 1/4 of a abd, secured with tape. patient tolerated well. 0805 released ambulatory
--- NOTE | 2025-05-27 07:51 | PC.NURSE ---
0740: Old dressing to rightt upper back removed Packing removed by at home. Trace amount of serosang. drainage old dressing. Wound measures approx. 1cm in length.0.3cm wide, and 1cm deep. Irrigated wound with ns. Surrounding skin reddish purple and indurated approx 2-3 cm around wound, but much improved. Skin intact around wound no open areas. Repacked with 1/2 iodoform gauze. Skin prep applied to surrounding skin and covered with 1/4 of a abd. dressing. Secured with porous tape. Patient tolerated without c/o. 0750: D/c'd amb to home.
[2025-05-28 08:30] VITALS: BP 131/90; PULSE 92; TEMP 36.6; O2SAT 97
--- NOTE | 2025-05-28 08:31 | PC.NURSE ---
0750 rt upper back dressing and packing removed, small amount of mucopurulent drainage on packing (approx 2 inches of packing removed). irrigated wound with ns, surrounding skin reddish purple and indurated approx 2-3 cm around wound. skin intact around wound no open areas. wound approx 1.5 cm deep, x 1 cm in length by 0.3 cm wide, appears clean. repacked with 1/2 iodaform nugauze. skin prep applied to surrounding skin, covered with 1/4 of a abd, secured with tape. patient tolerated well. 0800 released ambulatory
[2025-05-29 10:35] VITALS: BP 138/90; PULSE 94; TEMP 36.9
[2025-05-30 09:10] VITALS: BP 171/90; PULSE 92; TEMP 36.6
--- NOTE | 2025-06-01 07:35 | PC.NURSE ---
0725 rt upper back dressing and packing removed, small amount of mucopurulent drainage on packing (approx 2 inches of packing removed). irrigated wound with ns, surrounding skin reddish purple and indurated approx 2-3 cm around wound. skin intact around wound no open areas. wound approx 1.5 cm deep, x 1 cm in length by 0.3 cm wide, appears clean. repacked with 1/2 iodaform nugauze. skin prep applied to surrounding skin, covered with 1/4 of a abd, secured with tape. patient tolerated well. 0740 released ambulatory
[2025-06-02 07:41] VITALS: BP 149/94; PULSE 94; TEMP 36.1; O2SAT 98
--- NOTE | 2025-06-02 07:42 | PC.NURSE ---
0740 rt upper back dressing and packing removed, mod amount of mucopurulent drainage on packing (approx 2 inches of packing removed). irrigated wound with ns, surrounding skin purplish with 1-2 cm of induration. skin intact around wound no open areas. wound approx 1.5 cm deep, x 1 cm in length by 0.3 cm wide, appears clean. repacked with 1/2 iodaform nugauze. skin prep applied to surrounding skin, covered with 1/4 of a abd, secured with tape. patient tolerated well. 0745 released ambulatory
[2025-06-04 08:16] VITALS: BP 133/84; PULSE 92; TEMP 36.2; O2SAT 98
[2025-06-05 09:28] VITALS: BP 144/60; PULSE 95; TEMP 36.7; O2SAT 98
--- NOTE | 2025-06-08 16:04 | PC.NURSE ---
1530 rt upper back dressing and packing removed, small amount of drainage on packing (approx 1 inches of packing removed). irrigated wound with ns, surrounding skin purplish with sl firmness 1cm cm oaround wound. skin intact around wound no open areas. wound approx 1 cm deep, x .5 cm in length by 0.3 cm wide, appears clean. repacked with 1/2 iodaform nugauze. skin prep applied to surrounding skin, covered with 1/2 of 4x4, secured with tape. patient tolerated well. 1545 released ambulatory
[2025-06-09 07:32] VITALS: BP 143/90; PULSE 81; TEMP 36.6; O2SAT 97
--- NOTE | 2025-06-09 07:35 | PC.NURSE ---
0730 rt upper back dressing and packing removed, small amount of drainage on packing (approx 1 inches of packing removed). irrigated wound with ns, surrounding skin purplish with sl firmness 1cm cm around wound. skin intact around wound no open areas. wound approx 1 cm deep, x .5 cm in length by 0.3 cm wide, appears clean. repacked with 1/2 iodaform nugauze. skin prep applied to surrounding skin, covered large bandaid. tolerated well. 0735 released ambulatory
== END 2025-06-13 23:59 | disposition home or self-care (01) ==
LOC: INF 07:32
PROVIDERS: PCP Nurse Practitioner Family; Visit Provider Surgery
DX: Z48.00 Encounter for change or removal of nonsurgical wound dressing (principal)